=== PATIENT | female | born 1965 | race Caucasian/White ===

== ENCOUNTER 2022-02-20 06:49 | Day surgery (SDC) | payer OTHER ==
[2022-02-20] MEDS ORDERED: NA CHLORIDE 0.9% 1,000 ML ONE (07:16)
[2022-02-20] MEDS ORDERED: propofoL 200 MG/20 ML VIAL IV ONE ×2 (08:35)
[2022-02-20] MEDS ORDERED: LIDOCAINE 1% MPF 5 ML VIAL ONE (08:35)
--- NOTE | 2022-02-20 09:11 | ENDO RPT ---
[address], [address] COLONOSCOPY PROCEDURE REPORT EXAM DATE: 02/20/2022 PATIENT NAME: Aylin Cespedes MR #: [id number] BIRTHDATE: 1965 ATTENDING: Mark Gomez DR STATUS: outpatient ACCOUNTING SYSTEM EXPERT: Breanna White RN and Steven Stone [facility] INDICATIONS: The patient is a 57 yr old Female here for a colonoscopy due to colon cancer screening PROCEDURE PERFORMED: Screening Colonoscopy, Colonoscopy with biopsy, and Colonoscopy with biopsy - cold polypectomy MEDICATIONS: Per Anesthesia. ESTIMATED BLOOD LOSS: None CONSENT: The patient understands the risks and benefits of the procedure and understands that these risks include, but are not limited to: sedation, allergic reaction, infection, perforation and/or bleeding. Alternative means of evaluation and treatment include, among others: physical exam, x-rays, and/or surgical intervention. The patient elects to proceed with this endoscopic procedure. DESCRIPTION OF PROCEDURE: During intra-op preparation period all mechanical medical equipment was checked for proper function. Hand hygiene and appropriate measures for infection prevention was taken. Procedure, possible complications, alternatives including, but not limited to possibility of bleeding, perforation, tear, infection, sepsis, need for surgery, need for blood transfusion, were explained to the patient. After the risks, benefits and alternatives of the procedure were thoroughly explained, Informed consent was verified, confirmed and timeout was successfully executed by the treatment team. The patient was placed in the left lateral position. A digital rectal exam was performed and revealed internal hemorrhoids, A digital rectal exam was performed and revealed external hemorrhoids, and A digital rectal exam was performed and revealed several skin tags. After appropriate level of anesthesia, the scope was passed. The EC-[id number] ([id number]) endoscope was introduced through the anus and advanced to the ileum. The quality of the prep was fair. The instrument was then slowly withdrawn as the colon was fully examined. Scope withdrawal time was 12 minutes. COLON FINDINGS: Moderate sized internal and external hemorrhoids were found. A smooth sessile polyp ranging between 3-5mm in size was found at the cecum. A polypectomy was performed with cold forceps. The resection was complete, the polyp tissue was completely retrieved and sent to histology. The lumen appeared normal in the terminal ileum, a cold forcept biopsy was peformed of the terminal ileum. Retroflexed views revealed no abnormalities. The scope was then completely withdrawn from the patient and the procedure terminated. ADVERSE EVENTS: There were no complications. IMPRESSIONS: 1. Moderate sized internal and external hemorrhoids 2. Sessile polyp ranging between 3-5mm in size was found at the cecum; polypectomy was performed with cold forceps 3. The lumen appeared normal in the terminal ileum RECOMMENDATIONS: 1. fiber rich diet 2. await biopsy results 3. avoid NSAIDS for 2 weeks 4. follow-up: office 2 week(s) 5. Monitor for any evidence of rectal bleeding. 6. hemorrhoidal hygiene 7. yearly hemoquant 8. yearly hemoccult starting in 4 years 9. increase dietary water 10. avoid NSAIDs for 2 weeks RECALL: for Colonoscopy, pending biopsy results. Mark Gomez DR eSigned: Mark Gomez DR 02/20/2022 9:10 AM cc: CPT CODES: ICD9 CODES: PATIENT NAME: Aylin Cespedes MR#: [id number]
[2022-02-20 10:30] VITALS: BP 101/71; TEMP 96.7; O2SAT 98
== END 2022-02-20 09:33 | disposition home or self-care (01) ==
LOC: OR 06:49
PROVIDERS: ATTEND Surgery
PROC: 0DBH8ZX Excision of Cecum, Via Natural or Artificial Opening Endoscopic, Diagnostic (ICD-10-PCS; 2022-02-20)
PROC: 0DBB8ZX Excision of Ileum, Via Natural or Artificial Opening Endoscopic, Diagnostic (ICD-10-PCS; principal; 2022-02-20 08:30)
DX: D12.0 Benign neoplasm of cecum (principal); R14.0 Abdominal distension (gaseous); Z20.822 Contact with and (suspected) exposure to COVID-19; K64.4 Residual hemorrhoidal skin tags; K64.8 Other hemorrhoids
CPT/HCPCS: 82947; 88305; 45380; U0003; J2704 ×2; J7030

== ENCOUNTER 2022-05-22 09:55 | Emergency (ER) | payer OTHER ==
--- OUTSIDE RECORDS SUMMARY | 2022-05-22 10:04 | XMS REPORT | Continuity of Care Document ---
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 Wheezing or Shortness of Breath. aspirin 81 2017- Yes 81mg Take 1 Unive rs mg chewable 8-31 tablet by ity of tablet 00:00: mouth [place] 00 daily. Medical Branch blood sugar 2017- Yes Check bs Un [place] diagnostic 4-23 2x's daily ity of strip 00:00: as per [place] 00 code e11.9 Medical Branch Blood-Gluco Yes Check bs Un [place] se Meter 4-23 one daily ity of (ACCU-CHEK 00:00: per code [place] as MAGY PLUS 00 e11.9 Medical METER) [facility] lancets 33 Yes Test bs Univ ers gauge Misc 4-23 one daily ity of 00:00: per code [place] 00 e11.9 Medical Branch Immunizations Ordered Filled Immunization Date Status Comments Sourc e Immunization Name Name SARS-COV-2 COVID-19 2021-03-12 Completed Unive rsity of MODERNA VACCINE 00:00:00 [facility] Branch SARS-COV-2 COVID-19 2021-03-12 Completed Unive rsity of UNSPECIFIED VACCINE 00:00:00 [facility] SARS-COV-2 COVID-19 2021-02-12 Completed Unive rsity of MODERNA VACCINE 00:00:00 [facility] Branch SARS-COV-2 COVID-19 2021-02-12 Completed Unive rsity of UNSPECIFIED VACCINE 00:00:00 [facility] Pneumococcal 2019-07-15 Completed University o f Polysaccharide, 00:00:00 [facility] PPSV23 (PNEUMOVAX) Branch Influenza High Dose 2019-07-09 Completed Unive rsity of 00:00:00 [facility] Influenza Virus 2017-10-11 Completed Universit y of Vaccine Quad IM 3+ 00:00:00 [facility] Branch Pneumococcal 13 2016-07-17 Completed Universit y of Conjugate, PCV13 00:00:00 [facility] dical (Prevnar 13) [place] Influenza Virus 2016-07-17 Completed Universit y of Vaccine Quad IM 3+ 00:00:00 [facility] Influenza Virus 2015-08-09 Completed Universit y of Vaccine Quad IM 3+ 00:00:00 [facility] Vital Signs Vital Name Observation Time Observation Value Comments Source Systolic blood 2022-05-17 14:10:00 122 mm[Hg] Univer sity of pressure [facility] Diastolic blood 2022-05-17 14:10:00 83 mm[Hg] Unive rsity of [facility] Heart rate 2022-05-17 14:10:00 94 /min [facility] Body temperature 2022-05-17 14:10:00 36.61 Zaida [facility] Res[facility] rate 2022-05-17 14:10:00 18 /min [facility] Body height 2022-05-17 14:10:00 167.6 cm [facility] Body weight 2022-05-17 14:10:00 78.926 kg [facility] ty [facility] BMI 2022-05-17 14:10:00 28.08 kg/m2 [facility] Oxygen saturation in 2022-05-17 14:10:00 96 /min [facility] Arterial blood by [facility] Pulse oximetry Branch Systolic blood 2021-12-23 18:33:00 138 mm[Hg] [facility] pressure Diastolic blood 2021-12-23 18:33:00 78 mm[Hg] [facility] He alth pressure Heart rate 2021-12-23 18:33:00 89 /min [facility] Body temperature 2021-12-23 18:33:00 36.22 Zaida [facility] Body height 2021-12-23 18:33:00 167.6 cm [facility] Body weight 2021-12-23 18:33:00 77.565 kg [facility] BMI 2021-12-23 18:33:00 27.60 kg/m2 [facility] Systolic blood 2021-09-20 14:57:00 121 mm[Hg] [facility] pressure Diastolic blood 2021-09-20 14:57:00 83 mm[Hg] [facility] He alth pressure Heart rate 2021-09-20 14:57:00 88 /min [facility] Body temperature 2021-09-20 14:57:00 36.28 Zaida [facility] Body height 2021-09-20 14:57:00 167.6 cm [facility] Body weight 2021-09-20 14:57:00 75.116 kg [facility] BMI 2021-09-20 14:57:00 26.73 kg/m2 [facility] Systolic blood 2021-08-17 19:42:00 130 mm[Hg] [facility] pressure Diastolic blood 2021-08-17 19:42:00 86 mm[Hg] [facility] He [facility]th pressure Heart rate 2021-08-17 19:42:00 108 /min [facility] Body temperature 2021-08-17 19:42:00 36.11 Zaida [facility] Body height 2021-08-17 19:42:00 166.4 cm [facility] Body weight 2021-08-17 19:42:00 75.779 kg [facility] BMI 2021-08-17 19:42:00 27.38 kg/m2 [facility] Respitory Rate 2021-10-25 16:18:00 [facility] [place] Systolic (mm Hg) 2021-10-25 16:18:00 Barry rial [place] Diastolic (mm Hg) 2021-10-25 16:18:00 Mem o[facility] [place] Systolic (mm Hg) 2021-10-25 16:00:00 Barry rial [place] Diastolic (mm Hg) 2021-10-25 16:00:00 Mem [facility] [place] Respitory Rate 2021-10-25 16:00:00 [facility] [place] Respitory Rate 2021-10-25 15:45:00 [facility] [place] Systolic (mm Hg) 2021-10-25 15:45:00 Barry rial [place] Diastolic (mm Hg) 2021-10-25 15:45:00 Mem [facility]rial [place] Height 2021-10-25 12:00:00 167.64 cm [facility] [place] Weight 2021-10-25 12:00:00 [facility] [place] BMI Calculated 2021-10-25 12:00:00 [facility] [place] Heart Rate 2021-10-25 12:00:00 [facility] [place] Height 2021-10-20 17:54:00 167.64 cm [facility] [place] Weight 2021-10-20 17:54:00 [facility] [place] BMI Calculated 2021-10-20 17:54:00 [facility] [place] Procedures Procedure Date / Time Performing Clinician Source Performed [id number] 2020-08-03 [facility] [place] [address] [id number] 2020-02-25 00:00:00 [facility] [id number] 2020-02-25 00:00:00 [facility] [id number] 2020-02-25 00:00:00 [facility] [id number] 2020-02-19 00:00:00 [facility] [id number] 2020-02-19 00:00:00 [facility] PCI (percutaneous coronary 2020-01-30 05:00:00 [facility] [place] intervention) of circumflex branch of left coronary artery [facility] Ptosis repair [facility] [place] Tonsillectomy [facility] Encounters Start End Encounter Admission Attending Care Care Encounter Source Date/Time Date/Time Type Type Clinicians Facility Department ID 2022-02-20 Outpatient [facility] [id number] [place] 01:04:25 [place]UR[place] [id number] [facility] 2022-01-24 [facility] [id number] [place] 01:03:57 [place]URGA [id number] [facility] 2021-12-23 [facility] [id number] [place] 13:30:21 DURGA [id number] [facility] 2021-12-21 Outpatient [facility] [id number] [place] 09:10:03 [id number] [facility] 2021-11-24 [facility] [id number] [place] 19:22:14 DURGA [facility] 2022-05-17 2022-05-17 Office NINI Canela [id number] Univers 09:30:00 09:52:55 Visit Stephane VILA [id number] i ty of CARE 4.2.7.2.686 Jairo SELBY [id number] Ma dical 044 Branch 2022-02-14 2022-02-14 Outpatient KEFFER_A [facility] [id number] [place] 04:57:00 04:57:00 0517 [facility] 2022-02-07 2022-02-07 Outpatient KEFFER_A [facility] [id number] [place] 03:01:00 03:01:00 0510 [facility] 2022-02-07 2022-02-07 Outpatient Miya Bowers [facility] [id number] 00:00:00 00:00:00 Margret [id number] 2022-01-31 2022-01-31 Outpatient KEFFER_A [facility] [id number] [place] 03:29:00 03:29:00 0503 [facility] 2022-01-31 2022-01-31 Outpatient Miya Bowers [facility] [id number] 00:00:00 00:00:00 Margret [id number] 2022-01-16 2022-01-16 Outpatient KEFFER_A [facility] [id number] [place] 01:18:00 01:18:00 0418 [facility] 2022-01-16 2022-01-16 Outpatient Nino Miya [facility] [id number] 00:00:00 00:00:00 Margret [id number] 2022-01-02 2022-01-02 Outpatient KEFFER_A [facility] [id number] [place] 03:22:00 03:22:00 0404 [facility] 2022-01-02 2022-01-02 Outpatient Miya Bowers [facility] [id number] 00:00:00 00:00:00 Margret [id number] 2021-12-27 2021-12-27 Outpatient KEFFER_A [facility] [id number] [place] 04:52:00 04:52:00 0329 [facility] 2021-12-23 2021-12-23 Office Wili [facility] [id number] [place] 13:45:00 14:05:28 Visit Durga ALMANZAR 350.1.13.58 H [facility] 9.2.7.2.686 BUILDING [id number] 1 2021-12-07 2021-12-07 Outpatient KEFFER_A [facility] [id number] [place] 06:49:00 06:49:00 0309 [facility] 2021-11-21 2021-11-21 Outpatient WILI [facility] ALEXANDER [id number] [facility] 07:36:00 23:59:00 [place] 2021-11-17 2021-11-17 Outpatient KEFFER_A [facility] [id number] [place] 09:25:00 09:25:00 0217 [facility] 2021-11-15 2021-11-15 Outpatient KEFFER_A [facility] [id number] [place] 01:23:00 01:23:00 0215 [facility] 2021-11-01 2021-11-01 Outpatient JARVISFFER_A [facility] [id number] [place] 05:01:00 05:01:00 0201 [facility] 2021-10-27 2021-10-27 [facility] [id number] [place] 09:23:00 09:23:00 H da [facility] 2021-10-25 2021-10-26 Day nullFlavo [facility] [id number] Memoria 11:44:00 05:59:[address] 2021-10-25 2021-10-26 Day nullFlavo [facility] [id number] Memoria 11:42:00 05:59:00 Surgery r [place] 01 l [facility] 2021-10-25 2021-10-25 Outpatient WILI [facility] [id number] [facility] 05:44:00 23:59:00 [place] 2021-10-25 2021-10-25 Outpatient WILI [facility] ALEXANDER [id number] MH 05:42:00 23:59:00 [place] 2021-10-25 2021-10-25 Telephone Ira Meadows BUD [id number] [place] 00:00:00 00:00:00 Ira Meadows 350.1.13.58 [facility] MEDICAL 9.2.7.2.686 [facility] [id number] 1 2021-10-21 2021-10-22 Outpatient nullFlavo Urgent [id number] [facility] 16:50:00 05:59:59 [facility] 00 [facility] 2021-09-20 2021-09-20 Office WiliBUD [id number] [place] 09:15:00 10:16:37 Visit Durga ALMANZAR 350.1.13.58 H [facility] 9.2.7.2.686 [facility] [id number] 1 2021-09-12 2021-09-12 Outpatient NINO_Adelaide [facility] 2020 [place] 05:54:00 05:54:00 1213 [facility] 2021-08-17 2021-08-17 Office BUD Hinojosa [facility] [id number] [id number] [place] 13:30:00 14:29:46 Visit Harry LE 350.1.13.[address] 9.2.7.2.686 [id number] 2021-07-26 2021-07-26 Outpatient MINA [facility] [id number] [place] 01:02:00 01:02:00 1026 [facility] 2021-07-26 2021-07-26 Outpatient Miya Bowers [facility] [id number] 00:00:00 00:00:00 Margret [id number] 2021-07-25 Outpatient KEFFER_A [facility] 2020 [place] 01:19:00 01:19:00 1025 [facility] 2021-07-20 2021-07-20 Outpatient KEFFER_A [facility] 2020 [place] 01:18:00 01:18:00 1020 [facility] 2021-01-31 2021-01-31 Outpatient EL Pipopou HCAPM LABO LA0 [id number] [facility] 08:37:00 08:37:00 r, Amir 82 [facility] 2020-12-28 2020-12-27 Inpatient EL Jamal HCAPM RADI LA00 [id number] [facility] 10:30:00 10:30:00 r, Amir 27 [facility] 2020-12-14 2020-12-14 [facility] [id number] 00:00:00 00:00:00 Stephane E PRIMARY [id number] CARE 4.2.7.2.686 PAVILLION [id number] 2020-12-14 2020-12-14 [facility] [id number] 00:00:00 00:00:00 Secure Ms Stephane E PRIMARY [id number] CARE 4.2.7.2.686 PAVILLION [id number] 2020-12-13 2020-12-13 [facility] [id number] 10:26:08 11:16:28 Visit Allen Hurtado 350.1.13.10 [place] 4.2.7.2.686 Professio [id number] [facility] 2020-08-01 2020-08-16 Inpatient HCAPM NAVYA [id number] [facility] 19:05:00 04:04:10 20 [facility] 2020-08-02 2020-08-02 Outpatient Juwan HCACL LABO [id number] [facility] 07:57:00 07:57:[address] 2020-02-21 2020-04-23 Inpatient DANA Wright [facility] ICU [id number] [facility] 12:40:00 07:33:47 Maulik 48 [facility] 2020-04-20 2020-04-20 Outpatient Gasulemanpou HCAPM RADI LA0 [id number] [facility] 15:00:00 15:00:00 r, Amir 72 Dargrady n d [facility] 2020-02-19 2020-03-25 Inpatient UR Rolanda, [facility] INTE.02 [id number] [facility] 09:48:00 01:51:06 [place] 03 Sheela an d [facility] 2020-02-21 2020-02-21 Outpatient Kyle [facility] [id number] [facility] 21:56:00 21:56:00 Maulik 74 [facility] are [facility] Results Test Description Test Time Test Comments Results Result Comments Source CHEM PANEL 2021-10-25 11:50:00 Test Item Value Reference Range Interpretation Comme nts Globulin (test code = Globulin) 4.2 2.7-4.2 [facility] [id number] 11:50:00 Test Item Value Reference Range Interpretation Comments A/G Ratio (test code = A/G Ratio) 0.8 1 0.7-1.6 [facility] [id number] 11:50:00 Test Item Value Reference Range Interpretation Comments eGFR (test code = eGFR) 103 [facility] HospitalTggfjfoKOWFFKSZGV7440-87-70 11:50:00 Test Item Value Reference Range Interpretation Comments WBC (test code = WBC) 9.9 3.7-10.4 [facility] HospitalKutmbizMJIEVWETEK9348-60-95 11:50:00 Test Item Value Reference Range Interpretation Comments RBC (test code = RBC) 4.04 4.20-5.40 [facility] HospitalHtuctjaXJEEPMYSTE3280-67-04 11:50:00 Test Item Value Reference Range Interpretation Comments Hgb (test code = Hgb) 14.6 12.0-16.0 [facility] HospitalFcxlevcVMSHBDZCQS8008-61-78 11:50:00 Test Item Value Reference Range Interpretation Comments Hct (test code = Hct) 41.5 36.0-48.0 [facility] HospitalWgupgosIDOFYWGODG9534-75-24 11:50:00 Test Item Value Reference Range Interpretation Comments MCV (test code = MCV) 102.9 80.0-98.0 [place] 251542-01-25 11:50:00 Test Item Value Reference Range Interpretation Comments MCH (test code = MCH) 36.1 pg 27.0-31.0 [place] 251542-01-25 11:50:00 Test Item Value Reference Range Interpretation Comments MCHC (test code = MCHC) 35.1 32.0-36.0 [place] 251542-01-25 11:50:00 Test Item Value Reference Range Interpretation Comments RDW (test code = RDW) 14.7 11.5-14.5 [place] 251542-01-25 11:50:00 Test Item Value Reference Range Interpretation Comments Platelet (test code = Platelet) 338 133-450 [place] 251542-01-25 11:50:00 Test Item Value Reference Range Interpretation Comments MPV (test code = MPV) 7.4 7.4-10.4 [place] 251542-01-25 11:50:00 Test Item Value Reference Range Interpretation Comments Segs (test code = Segs) 47.3 45.0-75.0 [place] 251542-01-25 11:50:00 Test Item Value Reference Range Interpretation Comments Lymphocytes (test code = Lymphocytes) 38.2 20.0-40.0 [place] 251542-01-25 11:50:00 Test Item Value Reference Range Interpretation Comments Monocytes (test code = Monocytes) 10.5 2.0-12.0 [place] 251542-01-25 11:50:00 Test Item Value Reference Range Interpretation Comments Eosinophils (test code = 3.6 See_Comment [A utomated message] The Eosinophils) system which ge nerated this result tra nsmitted reference range : <=4.0. The reference r catherine was not used to int erpret this result as normal/abnormal . [place] 28825-01-25 11:50:00 Test Item Value Reference Range Interpretation Comments Basophils (test code = 0.4 See_Comment [Aut omated message] The Basophils) system which ge nerated this result tra nsmitted reference range : <=1.0. The reference r catherine was not used to int erpret this result as normal/abnormal . [place] 251542-01-25 11:50:00 Test Item Value Reference Range Interpretation Comments Neutrophils # (test code = Neutrophils 4.7 1.5-8.1 #) [place] 251542-01-25 11:50:00 Test Item Value Reference Range Interpretation Comments Lymphocytes # (test code = Lymphocytes 3.8 1.0-5.5 #) [place] 251542-01-25 11:50:00 Test Item Value Reference Range Interpretation Comments Monocytes # (test code 1.0 See_Comment [Aut omated message] The = Monocytes #) system which generated this result tra nsmitted reference range : <=0.8. The reference r catherine was not used to int erpret this result as normal/abnormal . [place] 251542-01-25 11:50:00 Test Item Value Reference Range Interpretation Comments Eosinophils # (test code 0.4 See_Comment [A utomated message] The = Eosinophils #) system whic h generated this result tra nsmitted reference range : <=0.5. The reference r catherine was not used to int erpret this result as normal/abnormal . [place] 251542-01-25 11:50:00 Test Item Value Reference Range Interpretation Comments Macrocyte (test code = 1+ *ABN*(10/25/21 Macrocyte) 5:50 AM) [place] 670152-01-25 11:50:00 Test Item Value Reference Range Interpretation Comments Glucose Lvl (test code = Glucose Lvl) 78 70-99 [place] 670152-01-25 11:50:00 Test Item Value Reference Range Interpretation Comments BUN (test code = BUN) 8 7-22 [place] 670152-01-25 11:50:00 Test Item Value Reference Range Interpretation Comments Creatinine Lvl (test code = Creatinine 0.58 0.50-1.40 Lvl) [place] 670152-01-25 11:50:00 Test Item Value Reference Range Interpretation Comments Sodium Lvl (test code = Sodium Lvl) 138 135-145 [place] 670152-01-25 11:50:00 Test Item Value Reference Range Interpretation Comments Potassium Lvl (test code = Potassium 5.3 3.5-5.1 Lvl) [place] 670152-01-25 11:50:00 Test Item Value Reference Range Interpretation Comments Chloride Lvl (test code = Chloride Lvl) 110 95-109 [place] 670152-01-25 11:50:00 Test Item Value Reference Range Interpretation Comments CO2 (test code = CO2) 24 24-32 [place] 670152-01-25 11:50:00 Test Item Value Reference Range Interpretation Comments Calcium Lvl (test code = Calcium Lvl) 9.5 8.5-10.5 [facility] [id number] 11:50:00 Test Item Value Reference Range Interpretation Comments Total Protein (test code = Total 7.7 6.4-8.4 Protein) [place] 670152-01-25 11:50:00 Test Item Value Reference Range Interpretation Comments Albumin Lvl (test code = Albumin Lvl) 3.5 3.5-5.0 [facility] [id number] 11:50:00 Test Item Value Reference Range Interpretation Comments ALT (test code = ALT) 35 See_Comment [Auto mated message] The system which ge nerated this result transmit gael reference range : <=65. The reference range was not used to interpr et this result as karen l/abnormal. [facility] [id number] 11:50:00 Test Item Value Reference Range Interpretation Comments AST (test code = AST) 37 See_Comment [Auto mated message] The system which ge nerated this result transmit gael reference range : <=37. The reference range was not used to interpr et this result as karen l/abnormal. [facility] [id number] 11:50:00 Test Item Value Reference Range Interpretation Comments Alk Phos (test code = Alk Phos) 145 39-136 [facility] [id number] 11:50:00 Test Item Value Reference Range Interpretation Comments Bili Total (test code = Bili Total) 0.6 0.2-1.3 [place] 670152-01-25 11:50:00 Test Item Value Reference Range Interpretation Comments AGAP (test code = AGAP) 9.3 10.0-20.0 [facility] [id number] 11:50:00 Test Item Value Reference Range Interpretation Comments B/C Ratio (test code = B/C Ratio) 14 1 6-25 [facility] [id number] 16:22:00 Test Item Value Reference Range Interpretation Comments Coronavirus (COVID-19) Not Detected KARAN (test code = *NA*(10/21/21 10:22 Coronavirus (COVID-19) AM) KARAN) [facility] METABOLIC [id number] 09:39:00 Test Item Value Reference Range Interpretation Comments SODIUM (test code = NA) 148 mmol/L 134-147 H POTASSIUM (test code = 4.5 mmol/L 3.4-5.0 N K) CHLORIDE (test code = 116 mmol/L 100-108 H CL) CARBON DIOXIDE (test 27 mmol/L 21-32 N code = CO2) ANION GAP (test code = 5.0 GAP calc 4.0-15.0 N GAP) GLUCOSE (test code = 99 MG/DL 70-110 N GLU) BLOOD UREA NITROGEN 7 MG/DL 7-18 N (test code = BUN) GLOMERULAR FILTRATION >=60 max estimate >60 RATE (test code = GFR) estGFR CREATININE (test code = 0.6 MG/DL 0.6-1.0 N CREAT) TOTAL PROTEIN (test code 7.3 G/DL 6.4-8.2 N = PROT) ALBUMIN (test code = 3.5 G/DL 3.4-5.0 N ALB) GLOBULIN (test code = 3.8 GM/dL GLOB) ALBUMIN/GLOBULIN RATIO 0.9 RATIO 1.2-2.2 L (test code = A/G) CALCIUM (test code = CA) 8.8 MG/DL 8.5-10.1 N BILIRUBIN TOTAL (test 0.20 MG/DL 0.2-1.2 N code = BILT) SGOT/AST (test code = 16 Unit/L 15-37 N AST) SGPT/ALT (test code = 32 Unit/L 12-78 N ALT) ALKALINE PHOSPHATASE 181 Unit/L 45-117 H TOTAL (test code = ALKP) LIPID PROFILE (CORONARY RISK)2021-01-31 09:39:00 Test Item Value Reference Range Interpretation Comments TRIGLYCERIDES (test 88 MG/DL 0-150 N code = TRIG) CHOLESTEROL (test code 129 MG/DL 133-200 L = CHOL) CHOLESTEROL/HDL RATIO 1.84 RATIO See_Comment [Auto mated message] (test code = CHOLHDL) The sy stem which generated this result transmit gael reference range : 0-. The reference r catherine was not used to interpret this result as normal/abnormal . HDL CHOLESTEROL (test 70 MG/DL 40-59 H code = HDL) NON-HDL CHOLESTEROL 59 mg/dL <130 (test code = NHDL) LIPOPROTEIN LDL (test 52 MG/DL 0-129 N code = LDL) LDL/HDL (test code = 0.74 Ratio See_Comment L [Autom ated message] LDL/HDL) The system Ph[employer] - Touch[employer] h generated this result transmit gael reference range : 1.48-3.22 Avg. The reference range was not used to interpret this result as normal/abnormal . - DUP EXTRACRANIAL [id number] 13:58:00 [facility] : 1965 Sex: F Name: ROSIO RASHEED [facility] : 1965 Age/S: 55 / F [id number] [place] Unit #: [id number] Loc: [place] [address] Phys: Sy Castano MD Acct: [id number] Dis Date: Status: REG CLI PHONE #: [phone] Exam Date: 12/28/2020 1030 FAX #: Reason: CHEST PAIN EXAMS: CPT: [id number] DUP EXTRACRANIAL JUAN C [id number] EXAMINATION: - DUP EXTRACRANIAL JUAN C. LOCATION: S17. HISTORY: Chest pain, Z86.73, I25.10. COMPARISON: CT chest 08/02/2020. FINDINGS: Hammond-scale, duplex and color Doppler images of the carotid systems are obtained bilaterally. Spectral analysis is also performed. (Validated velocity measurements with angiographic measurements ? Velocity criteria are extrapolated from diameter data as defined by the Society of Radiologists in Ultrasound Consensus Conference, Radiology 2003; 229; 340 ? 346.) There is minimal amount of atherosclerotic plaque involving bilateral common carotid arteries. There is no significant stenosis appreciated on grayscale imaging. On pulse Doppler imag ing there is no significant elevation of peak systolic velocity on either side. The peak systolic flow velocity within the right internal carotid artery is 96.8 cm/sec with ICA/CCA ratio of 1.1. The peak systolic flow velocity within the left internal carotid artery is 98.4 cm/sec with ICA/CCA ratio of 1.1. Both vertebral arteries are patent with appropriate antegrade direction of flow. IMPRESSION: Minimal bilateral atherosclerotic plaque without a hemodynamically significant stenosis on either sideby the Society of radiologists in ultrasound consensus criteria. at 1358 Reported and signed by: Adolfo Mendez M.D. CC: Sy Castano MD Technologist: Nathalia Hackett Trnnmb Date/Time: 12/28/2020 (9719) InnaANS4 PAGE 1 Signed Report Name: ROSIO RASHEED [facility] : 1965 Age/S: 55 / F [address] Unit #: [id number] Loc: [place] [address] Phys: Sy Castano MD Acct: [id number] Dis Date: Status: REG CLI PHONE #: [phone] Exam Date: 12/28/2020 1030 FAX #: Reason: CHEST PAIN EXAMS: CPT: [id number] DUP EXTRACRANIAL JUAN C 72882 (Continued) Orig Print D/T: S: 12/28/2020 (1401) Probe: PAGE 2 Signed ReportGLUCOSE BEDSIDE [id number] 12:10:00 Test Item Value Reference Range Interpretation Comments GLUCOSE BEDSIDE TESTING (test code = 90 mg/dL 70-110 N GLUBED) GLUCOSE BEDSIDE [id number] 07:48:00 Test Item Value Reference Range Interpretation Comments GLUCOSE BEDSIDE TESTING (test code = 97 mg/dL 70-110 N GLUBED) BASIC METABOLIC [id number] 06:47:00 Test Item Value Reference Range Interpretation Comments SODIUM (test code = NA) 144 mmol/L 134-147 N POTASSIUM (test code = 3.9 mmol/L 3.4-5.0 N K) CHLORIDE (test code = 115 mmol/L 100-108 H CL) CARBON DIOXIDE (test 24 mmol/L 21-32 N code = CO2) ANION GAP (test code = 5.0 GAP calc 4.0-15.0 N GAP) GLUCOSE (test code = 89 MG/DL 70-110 N GLU) BLOOD UREA NITROGEN 8 MG/DL 7-18 N (test code = BUN) GLOMERULAR FILTRATION >=60 max estimate >60 RATE (test code = GFR) estGFR CREATININE (test code = 0.6 MG/DL 0.6-1.0 N CREAT) CALCIUM (test code = CA) 8.8 MG/DL 8.5-10.1 N CBC W/AUTO [id number] 06:25:00 Test Item Value Reference Range Interpretation Comments WHITE BLOOD CELL (test code = 7.6 K/mm3 3.5-11.0 N WBC) RED BLOOD CELL (test code = 3.39 M/mm3 4.70-6.10 L RBC) HEMOGLOBIN (test code = HGB) 9.5 G/DL 10.4-14.9 L HEMATOCRIT (test code = HCT) 30.5 % 31.5-44.1 L MEAN CELL VOLUME (test code = 90.0 Fl 84.5-98.6 N MCV) MEAN CELL HGB (test code = MCH) 28.0 pg 27.0-34.2 N MEAN CELL HGB CONCETRATION 31.1 G/DL 31.5-34.0 L (test code = MCHC) RED CELL DISTRIBUTION WIDTH 16.7 SD 11.5-14.5 H (test code = RDW) PLATELET COUNT (test code = 471 K/mm3 150-450 H PLT) MEAN PLATELET VOLUME (test code 8.90 fL 7.0-10.5 N = MPV) NEUTROPHIL % (test code = NT%) 49.9 % 40-76 N IMMATURE GRANULOCYTE % (test 0.4 % 0.0-5.0 N code = IG%) LYMPHOCYTE % (test code = LY%) 33.8 % 20.5-51.1 N MONOCYTE % (test code = MO%) 10.1 % 1.7-9.3 H EOSINOPHIL % (test code = EO%) 4.8 % 0.0-6.0 N BASOPHIL % (test code = BA%) 1.0 % 0.0-2.0 N NUCLEATED RBC % (test code = 0.0 /100WBC% 0.0-1.0 N NRBC%) NEUTROPHIL # (test code = NT#) 3.8 K/mm3 1.8-7.6 N IMMATURE GRANULOCYTE # (test 0.03 x10 3/uL 0.00-0.03 N code = IG#) LYMPHOCYTE # (test code = LY#) 2.6 K/mm3 0.6-3.2 N MONOCYTE # (test code = MO#) 0.8 K/mm3 0.3-1.1 N EOSINOPHIL # (test code = EO#) 0.4 K/mm3 0.0-0.4 N BASOPHIL # (test code = BA#) 0.1 K/mm3 0.0-0.1 N NUCLEATED RBC # (test code = 0.0 K/mm3 0.0-0.1 N NRBC#) MANUAL DIFF REQUIRED (test code NO DIFF/SCN CRITERIA = MDIFF) GLUCOSE BEDSIDE [id number] 21:17:00 Test Item Value Reference Range Interpretation Comments GLUCOSE BEDSIDE TESTING (test code = 68 mg/dL 70-110 L GLUBED) GLUCOSE BEDSIDE [id number] 16:56:00 Test Item Value Reference Range Interpretation Comments GLUCOSE BEDSIDE TESTING (test code 194 mg/dL 70-110 H = GLUBED) - XR [id number] 15:45:00 [facility] 1965 Sex: F Name: ROSIO RASHEED [facility] : 1965 Age/S: 55 / F [address] Unit #: [id number] Loc: [place] [address] Phys: Reji Gilbert MD Acct: [id number] Dis Date: Status: ADM IN PHONE #: [phone] Exam Date: 08/03/2020 6362 FAX #: Reason: abnormal egd-evaluate for paraesophageal hernia EXAMS: CPT: [id number] XR ESOPHAGUS [id number] Fluoro Time: 192 sec DAP (Gy m2): Air Kerma (mGy): 50.74 EXAMINATION: - XR ESOPHAGUS. LOCATION: S17. HISTORY: Abnormal EGD, evaluate for paraesophageal hernia, chest pain, GERD. History of bariatric surgery in 1996. COMPARISON: CTA chest 08/02/20. TECHNIQUE: Single contrast upper GI was performed with barium oral contrast and overhead spot films were obtained. Fluoroscopic time: 192 seconds. 50.748 mGy. 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 Postoperative C-shaped suture material is noted in the left upper abdomen. The esophagus is unremarkable in course andcaliber. Esophageal mucosal pattern is unremarkable. Esophageal peristalsis is unremarkable. Gastroesophageal reflux was not seen during the procedure. Gastroesophageal junction is normally positioned. The stomach demonstrates postoperative changes, presumably representing vertical-banded gastroplasty with dilatation of the stoma. Course of duodenum appears unremarkable. IMPRESSION: Postoperative C-shaped suture material overlying stomach, presumably related to vertical-banded gastroplasty with dilatation of the stoma. Recommend surgery consult. at 1545 Reported and signed by: Adolfo Mendez M.D. CC: Reji Gilbert MD; Juan M Echeverria MD PAGE 1 Signed Report Name: ROSIO RASHEED [facility] : 1965 Age/S: 55 / F [address] Unit #: [id number] Loc: [place] [address] Phys: Reji Gilbert MD Acct: [id number] Dis Date: Status: ADM IN PHONE #: [phone] Exam Date: 08/03/2020 1454 FAX #: Reason: abnormal egd-evaluate for paraesophageal hernia EXAMS: CPT: [id number] XR [id number] Fluoro Time: 192 sec DAP (Gy m2): Air Kerma (mGy): 50.74 (Continued) Technologist: Francesco Penaloza RT(R)(CT) Trnscb Date/Time: 08/03/2020 (1541) t.SHIRAR.ANS4 Orig Print D/T: S: 08/03/2020 (7576) PAG E 2 Signed ReportGLUCOSE BEDSIDE [id number] 13:54:00 Test Item Value Reference Range Interpretation Comments GLUCOSE BEDSIDE TESTING (test code = 89 mg/dL 70-110 N GLUBED) GLUCOSE BEDSIDE [id number] 07:57:00 Test Item Value Reference Range Interpretation Comments GLUCOSE BEDSIDE TESTING (test code = 99 mg/dL 70-110 N GLUBED) BASIC METABOLIC [id number] 05:00:00 Test Item Value Reference Range Interpretation Comments SODIUM (test code = NA) 145 mmol/L 134-147 N POTASSIUM (test code = 4.1 mmol/L 3.4-5.0 N K) CHLORIDE (test code = 115 mmol/L 100-108 H CL) CARBON DIOXIDE (test 24 mmol/L 21-32 N code = CO2) ANION GAP (test code = 6.0 GAP calc 4.0-15.0 N GAP) GLUCOSE (test code = 91 MG/DL 70-110 N GLU) BLOOD UREA NITROGEN 10 MG/DL 7-18 N (test code = BUN) GLOMERULAR FILTRATION >=60 max estimate >60 RATE (test code = GFR) estGFR CREATININE (test code = 0.6 MG/DL 0.6-1.0 N CREAT) CALCIUM (test code = CA) 8.4 MG/DL 8.5-10.1 L CBC W/AUTO [id number] 04:51:00 Test Item Value Reference Range Interpretation Comments WHITE BLOOD CELL (test code = 7.9 K/mm3 3.5-11.0 N WBC) RED BLOOD CELL (test code = 3.15 M/mm3 4.70-6.10 L RBC) HEMOGLOBIN (test code = HGB) 8.6 G/DL 10.4-14.9 L HEMATOCRIT (test code = HCT) 27.9 % 31.5-44.1 L MEAN CELL VOLUME (test code = 88.6 Fl 84.5-98.6 N MCV) MEAN CELL HGB (test code = MCH) 27.3 pg 27.0-34.2 N MEAN CELL HGB CONCETRATION 30.8 G/DL 31.5-34.0 L (test code = MCHC) RED CELL DISTRIBUTION WIDTH 16.9 SD 11.5-14.5 H (test code = RDW) PLATELET COUNT (test code = 419 K/mm3 150-450 N PLT) MEAN PLATELET VOLUME (test code 9.20 fL 7.0-10.5 N = MPV) NEUTROPHIL % (test code = NT%) 46.8 % 40-76 IMMATURE GRANULOCYTE % (test 0.1 % 0.0-5.0 N code = IG%) LYMPHOCYTE % (test code = LY%) 40.2 % 20.5-51.1 N MONOCYTE % (test code = MO%) 7.6 % 1.7-9.3 N EOSINOPHIL % (test code = EO%) 4.3 % 0.0-6.0 N BASOPHIL % (test code = BA%) 1.0 % 0.0-2.0 N NUCLEATED RBC % (test code = 0.0 /100WBC% 0.0-1.0 N NRBC%) NEUTROPHIL # (test code = NT#) 3.7 K/mm3 1.8-7.6 N IMMATURE GRANULOCYTE # (test 0.01 x10 3/uL 0.00-0.03 N code = IG#) LYMPHOCYTE # (test code = LY#) 3.2 K/mm3 0.6-3.2 N MONOCYTE # (test code = MO#) 0.6 K/mm3 0.3-1.1 N EOSINOPHIL # (test code = EO#) 0.3 K/mm3 0.0-0.4 N BASOPHIL # (test code = BA#) 0.1 K/mm3 0.0-0.1 N NUCLEATED RBC # (test code = 0.0 K/mm3 0.0-0.1 N NRBC#) MANUAL DIFF REQUIRED (test code NO DIFF/SCN CRITERIA = MDIFF) [id number] 20:56:00 Test Item Value Reference Range Interpretation Comments TROPONIN-I (test < 0.015 NG/ML 0.000-0.045 N Negative: </= 0.045 code = TROPI) Positive: >/= 0.046 Correlation wit h serial results, other cardiac markers, and cl inical findings is nec essary to determine the c linical significance of this result. Quantit ative results using d ifferent methodologies s hould not be compared to one another as nume rical results may hina yby method. Completed by Nursing: Kyle Williamson Result: NEGPerformed By: .If Critical Value, Physician Notified:YESDate & Time Test Performed: TGLUCOSE BEDSIDE TESTING 2020-08-02 20:42:00 Test Item Value Reference Range Interpretation Comments GLUCOSE BEDSIDE TESTING (test code 113 mg/dL 70-110 H = GLUBED) GLUCOSE BEDSIDE [id number] 20:20:00 Test Item Value Reference Range Interpretation Comments GLUCOSE BEDSIDE TESTING (test code = 90 mg/dL 70-110 N GLUBED) GLUCOSE BEDSIDE [id number] 17:28:00 Test Item Value Reference Range Interpretation Comments GLUCOSE BEDSIDE TESTING (test code 107 mg/dL 70-110 N = GLUBED) - CTA CHEST FOR [id number] 16:58:00 [facility] : 1965 Sex: F Name: ROSIO RASHEED Sergio [facility] : 1965 Age/S: 55 / F [address] Unit #: [id number] Loc: [place] [address] Phys: Irasema Elias Acct: [id number] Dis Date: Status: ADM IN PHONE #: [phone] Exam Date: 08/02/20201651 FAX #: Reason: r/o PE EXAMS: CPT: [id number] CTA CHEST FOR PE Site ID: [id number] CT angiogram of the chest with pulmonary embolism protocol CLINICAL HISTORY: Pleuritic chest pain COMPARISON STUDY: Chest x-ray the prior day TECHNIQUE: CT angiogram of thechest with IV contrast performed according to department pulmonary embolus protocol. Radiologist performed post-acquisition 3D processing was done at the workstation and reviewed. CT dose lowering technique utilized, with adjustment of MA/kV according to patient size and automated exposure control. FINDINGS: There is no evidence of pulmonary embolism. The thyroid gland and thoracic inlet are normal.The heart size is normal. The thoracic aorta and great vessels are normal in caliber. Heavy three-vessel coronary atherosclerosis is present. No pleural or pericardial effusion. No axillary, mediastinal or hilar lymphadenopathy. The tracheobronchial tree is clear. No pulmonary nodules, mass or consolidation. Bone windows demonstrate no evidence of fracture or malalignment. Limited images of the upper abdomen demonstrate postoperative changes at the stomach with a small sliding-type hiatal hernia. IMPRESSION: 1. No evidence of acute pulmonary embolus or acute pulmonary infiltrate. 2. Heavy three-vessel coronary atherosclerosis. 3. Small sliding-type hiatal hernia. PAGE 1 Signed Report (CONTINUED)Name: ROSIO RASHEED [facility] : 1965 Age/S: 55 / F [address] [facility] Unit #: [id number] Loc: [place] [address] Phys: Irasema Elias Acct: [id number] Dis Date: Status: ADM IN PHONE #: [phone] Exam Date: 08/02/2020 165 FAX #: Reason: r/o PE EXAMS: CPT: [id number] CTA CHEST FOR PE (Continued) at 1658 Reported and signed by: Mark Chandra M.D. CC: Irasema STREET; Juan M Echeverria MD Technologist:Alona Deal RT(R)(CT) CTDI: DLP: Trnscb Date/Time: 08/02/2020 (1230) InnaAJP6 Orig Print D/T: S: 08/02/2020 (6733) PAGE 2 Signed ReportGLUCOSE BEDSIDE [id number] 13:45:00 Test Item Value Reference Range Interpretation Comments GLUCOSE BEDSIDE TESTING (test code = 96 mg/dL 70-110 N GLUBED) [id number] 06:11:00 Test Item Value Reference Range Interpretation Comments TROPONIN-I (test < 0.015 NG/ML 0.000-0.045 N Negative: </= 0.045 code = TROPI) Positive: >/= 0.046 Correlation wit h serial results, other cardiac markers, and cl inical findings is nec essary to determine the c linical significance of this result. Quantit ative results using d ifferent methodologies s hould not be compared to one another as nume rical results may hina yby method. Completed by Nursing: NOFE W/TOTAL IRON BINDING CAP.2020-08-02 06:00:00 Test Item Value Reference Range Interpretation Comments SERUM IRON (test code = IRON) 18 mcG/DL 50-170 L TOTAL IRON BINDING CAPACITY (test 347 mcG/DL 250-450 N code = TIBC) IRON SATURATION (test code = 5 % calc 12-57 L FESAT) BASIC METABOLIC [id number] 06:00:00 Test Item Value Reference Range Interpretation Comments SODIUM (test code = NA) 144 mmol/L 134-147 N POTASSIUM (test code = 3.7 mmol/L 3.4-5.0 N K) CHLORIDE (test code = 117 mmol/L 100-108 H CL) CARBON DIOXIDE (test 20 mmol/L 21-32 L code = CO2) ANION GAP (test code = 7.0 GAP calc 4.0-15.0 N GAP) GLUCOSE (test code = 92 MG/DL 70-110 N GLU) BLOOD UREA NITROGEN 12 MG/DL 7-18 N (test code = BUN) GLOMERULAR FILTRATION >=60 max estimate >60 RATE (test code = GFR) estGFR CREATININE (test code = 0.6 MG/DL 0.6-1.0 N CREAT) CALCIUM (test code = CA) 8.3 MG/DL 8.5-10.1 L CBC W/AUTO [id number] 05:37:00 Test Item Value Reference Range Interpretation Comments WHITE BLOOD CELL (test code = 9.9 K/mm3 3.5-11.0 N WBC) RED BLOOD CELL (test code = 2.82 M/mm3 4.70-6.10 L RBC) HEMOGLOBIN (test code = HGB) 7.9 G/DL 10.4-14.9 L HEMATOCRIT (test code = HCT) 24.6 % 31.5-44.1 L MEAN CELL VOLUME (test code = 87.2 Fl 84.5-98.6 N MCV) MEAN CELL HGB (test code = MCH) 28.0 pg 27.0-34.2 N MEAN CELL HGB CONCETRATION 32.1 G/DL 31.5-34.0 N (test code = MCHC) RED CELL DISTRIBUTION WIDTH 16.5 SD 11.5-14.5 H (test code = RDW) PLATELET COUNT (test code = 400 K/mm3 150-450 N PLT) MEAN PLATELET VOLUME (test code 9.30 fL 7.0-10.5 N = MPV) NEUTROPHIL % (test code = NT%) 64.9 % 40-76 N IMMATURE GRANULOCYTE % (test 0.2 % 0.0-5.0 N code = IG%) LYMPHOCYTE % (test code = LY%) 22.4 % 20.5-51.1 N MONOCYTE % (test code = MO%) 7.7 % 1.7-9.3 N EOSINOPHIL % (test code = EO%) 4.1 % 0.0-6.0 N BASOPHIL % (test code = BA%) 0.7 % 0.0-2.0 N NUCLEATED RBC % (test code = 0.0 /100WBC% 0.0-1.0 N NRBC%) NEUTROPHIL # (test code = NT#) 6.4 K/mm3 1.8-7.6 N IMMATURE GRANULOCYTE # (test 0.02 x10 3/uL 0.00-0.03 N code = IG#) LYMPHOCYTE # (test code = LY#) 2.2 K/mm3 0.6-3.2 N MONOCYTE # (test code = MO#) 0.8 K/mm3 0.3-1.1 N EOSINOPHIL # (test code = EO#) 0.4 K/mm3 0.0-0.4 N BASOPHIL # (test code = BA#) 0.1 K/mm3 0.0-0.1 N NUCLEATED RBC # (test code = 0.0 K/mm3 0.0-0.1 N NRBC#) MANUAL DIFF REQUIRED (test code NO DIFF/SCN CRITERIA = MDIFF) [id number] 00:52:00 Test Item Value Reference Range Interpretation Comments D-DIMER (test code = DDIMER) 509 ng/mLFEU 215-500 HH NT PRO-BRAIN NATRIURETIC [id number] 00:45:00 Test Item Value Reference Range Interpretation Comments NT PRO-BRAIN NATRIURETIC PEPTI 430 PG/ML 0-100 H (test code = PROBNP) Completed by Nursing: [id number] 00:45:00 Test Item Value Reference Range Interpretation Comments TROPONIN-I (test < 0.015 NG/ML 0.000-0.045 N Negative: </= 0.045 code = TROPI) Positive: >/= 0.046 Correlation wit h serial results, other cardiac markers, and cl inical findings is nec essary to determine the c linical significance of this result. Quantit ative results using d ifferent methodologies s hould not be compared to one another as nume rical results may hina yby method. Completed by Nursing: NOCOVID 19 INHOUSE [id number] 00:42:00 Test Item Value Reference Range Interpretation Comments COVID 19 INHOUSE AG NEGATIVE Negative Per manu facturer, (test code = negative result s should [id number]) be treated aspr esumptive and, if inconsi stent with clinical signs andsymptoms or necessary for patient man agement, should betested with an alternative mol ecular assay. Negative resultsdo not preclude SA RS-CoV-2 infection and s hould not be usedas the s ole basis for patient man agement decisions. Nega tive results should be considered in t he context of apatient's r ecent exposures, hist ory, presence of cli nicalsigns and symptoms co nsistent with COVID-19. - XR CHEST 1 [id number] 20:03:00 [facility] 1965 Sex: F Name: ROSIO RASHEED [facility] : 1965 Age/S: 55 / F [address] Unit #: [id number] Loc: [place] [address] Phys: Boni Helton MD Acct: [id number] Dis Date: Status: REGER PHONE #: [phone] Exam Date: 08/01/20201956 FAX #: Reason: dyspnea EXAMS: CPT: [id number] XRCHEST 1 V [id number] Fluoro Time: DAP (Gy m2): Air Kerma (mGy): EXAM: - XR CHEST 1 V HISTORY: Dyspnea. COM PARISON: February 21, 2020. FINDINGS: Single AP view of the chest is provided. Heart size and vascularity are within normal limits. There is no evidence of a focal consolidation. There is no pleural effusion or pneumothorax. There is no definite acute osseous abnormality. IMPRESSION: No radiographic evidence of acute cardiopulmonary process. at 2003 Reported and signed by: Albert Hartman M.D. CC: Boni Helton MD PAGE 1 Signed Report Name: ROSIO RASHEED [facility] : 1965 Age/S: 55 [address] [place] [address]: [id number] Loc: [place] [address] Phys: Boni Helton MD Acct: [id number] Dis Date: Status: REG ER PHONE #: [phone] Exam Date: 08/01/20201956 FAX #: Reason: dyspnea EXAMS: CPT: [id number] XR CHEST 1 V 48495 Fluoro Time: DAP (Gy m2): Air Kerma (mGy): (Continued) Technologist: Jackeline Aguila, RT(R)(CT) Trnscb Date/Time: 08/01/2020 (2002) InnaMKM4 Orig Print D/T: S: 08/01/2020 (2005) PAGE 2 Signed ReportCBC W/AUTO [id number] 19:57:00 Test Item Value Reference Range Interpretation Comments WHITE BLOOD CELL (test code = 11.2 K/mm3 3.5-11.0 H WBC) RED BLOOD CELL (test code = 3.33 M/mm3 4.70-6.10 L RBC) HEMOGLOBIN (test code = HGB) 9.1 G/DL 10.4-14.9 L HEMATOCRIT (test code = HCT) 30.2 % 31.5-44.1 L MEAN CELL VOLUME (test code = 90.7 Fl 84.5-98.6 N MCV) MEAN CELL HGB (test code = MCH) 27.3 pg 27.0-34.2 N MEAN CELL HGB CONCETRATION 30.1 G/DL 31.5-34.0 L (test code = MCHC) RED CELL DISTRIBUTION WIDTH 16.8 SD 11.5-14.5 H (test code = RDW) PLATELET COUNT (test code = 447 K/mm3 150-450 N PLT) MEAN PLATELET VOLUME (test code 9.10 fL 7.0-10.5 N = MPV) NEUTROPHIL % (test code = NT%) 68.5 % 40-76 N IMMATURE GRANULOCYTE % (test 0.4 % 0.0-5.0 N code = IG%) LYMPHOCYTE % (test code = LY%) 18.6 % 20.5-51.1 L MONOCYTE % (test code = MO%) 8.3 % 1.7-9.3 N EOSINOPHIL % (test code = EO%) 3.4 % 0.0-6.0 N BASOPHIL % (test code = BA%) 0.8 % 0.0-2.0 N NUCLEATED RBC % (test code = 0.0 /100WBC% 0.0-1.0 N NRBC%) NEUTROPHIL # (test code = NT#) 7.7 K/mm3 1.8-7.6 H IMMATURE GRANULOCYTE # (test 0.04 x10 3/uL 0.00-0.03 H code = IG#) LYMPHOCYTE # (test code = LY#) 2.1 K/mm3 0.6-3.2 N MONOCYTE # (test code = MO#) 0.9 K/mm3 0.3-1.1 N EOSINOPHIL # (test code = EO#) 0.4 K/mm3 0.0-0.4 N BASOPHIL # (test code = BA#) 0.1 K/mm3 0.0-0.1 N NUCLEATED RBC # (test code = 0.0 K/mm3 0.0-0.1 N NRBC#) MANUAL DIFF REQUIRED (test code NO DIFF/SCN CRITERIA = MDIFF) COMPREHENSIVE METABOLIC [id number] 19:57:00 Test Item Value Reference Range Interpretation Comments SODIUM (test code = NA) 144 mmol/L 134-147 N POTASSIUM (test code = 3.9 mmol/L 3.4-5.0 N K) CHLORIDE (test code = 117 mmol/L 100-108 H CL) CARBON DIOXIDE (test 19 mmol/L 21-32 L code = CO2) ANION GAP (test code = 8.0 GAP calc 4.0-15.0 N GAP) GLUCOSE (test code = 65 MG/DL 70-110 L GLU) BLOOD UREA NITROGEN 14 MG/DL 7-18 N (test code = BUN) GLOMERULAR FILTRATION >=60 max estimate >60 RATE (test code = GFR) estGFR CREATININE (test code = 0.7 MG/DL 0.6-1.0 N CREAT) TOTAL PROTEIN (test code 6.6 G/DL 6.4-8.2 N = PROT) ALBUMIN (test code = 3.0 G/DL 3.4-5.0 L ALB) GLOBULIN (test code = 3.6 GM/dL GLOB) ALBUMIN/GLOBULIN RATIO 0.8 RATIO 1.2-2.2 L (test code = A/G) CALCIUM (test code = CA) 8.2 MG/DL 8.5-10.1 L BILIRUBIN TOTAL (test 0.10 MG/DL 0.2-1.2 L code = BILT) SGOT/AST (test code = 20 Unit/L 15-37 N AST) SGPT/ALT (test code = 27 Unit/L 12-78 N ALT) ALKALINE PHOSPHATASE 147 Unit/L 45-117 H TOTAL (test code = ALKP) Completed by Nursing: [id number] 19:57:00 Test Item Value Reference Range Interpretation Comments TROPONIN-I (test < 0.015 NG/ML 0.000-0.045 N Negative: </= 0.045 code = TROPI) Positive: >/= 0.046 Correlation wit h serial results, other cardiac markers, and cl inical findings is nec essary to determine the c linical significance of this result. Quantit ative results using d ifferent methodologies s hould not be compared to one another as nume rical results may hina yby method. Completed by Nursing: NO- DUP VEIN UNI [id number] 15:19:00 Name: ROSIO RASHEED [facility] : 1965 Age/S: 55 / F [address] [address] Unit #:[id number] Loc: [place] [address] Phys: Sy Castano MD Acct: [id number] Dis Date: Status:REG CLI PHONE #: [phone] Exam Date: 04/20/2020 7082 FAX #: Reason: DVT EXAMS: CPT: [id number] [address] EXAMINATION: - DUP VEIN UNI RT. LOCATION: S17. HISTORY: DVT, leg swelling, recentfall/bruising, currently on blood thinners. COMPARISON: None. FINDINGS: Sonographic evaluation of right lower extremity was performed from the common femoral veins to the popliteal trifurcations utilizing grayscale, pulse Doppler, and color flow imaging. The veins are normally compressible. There is normal respiratory phasicity and augmentation demonstrated. Color flow is demonstrated. The visualized proximal calf veins demonstrate flow on color imaging. IMPRESSION: No evidence of deep venous thrombus in the visualized portions of the right lower extremity. at 1519 Reported and signed by: Adolfo Mendez M.D. CC: Sy Castano MD Technologist: [employer] [facility] Date/Time: 04/20/2020 (1519) [email or web address] PAGE 1 Signed Report Name: ROSIO RASHEED : 1965 Age/S: 55 / F [address] Unit #: [id number] Loc: [place] [address] Phys: Sy Castano MD Acct: [id number] Dis Date: Status: REG CLI PHONE #: [phone] Exam Date: 04/20/2020 1459 FAX #: Reason: DVT EXAMS: CPT:[id number] [place] [address] (Continued) Orig Print D/T: S: 04/20/2020 (152) Probe: PAGE 2 Signed Report LIPID PROFILE (CORONARY RISK)2020-02-26 04:16:00 Test Item Value Reference Range Interpretation Comments TRIGLYCERIDES (test 71 mg/dL 35-160 N code = TRIG) CHOLESTEROL (test code 112 mg/dL 0-200 N = CHOL) HDL CHOLESTEROL (test 40 mg/dL 45-65 L code = HDL) LIPOPROTEIN LDL (test 58 MG/DL 0-99 N INTERP RETATIVE code = LDLC) DATA:LDL Choles terol: Reference RangesOptimal: <100 mg/dLNear Optim al: 100 -129 mg/dLBorde rline High: 130 - 159 mg/dLHigh: 160 - 189 mg/dLVery High: = or > 190 mg/dL CORONARY RISK FACTOR 2.80 CHOL/H DL RISK MALE: (test code = RISK) 1/2 AVG 3 .43 FEMALE: 1/2 AVG 3.27 AV G 4.97 AVG 4.44 2X AVG 9.55 2X AVG 7.05 3X AVG 23.39 3X AVG 11.04~~~~~~~~~~ ~~~~~~~ ~~~~~~~~~~~~~~~ ~~~~~~~ ~~~~~~~~~~~~~~~ ~~~~~~N [facility] Cholest deana Education (NCEP ) Guidelines:~~~~ ~~~~~~~ ~~~~~~~~~~~~~~~ ~~~~~~~ ~~~~~~~~~~~~~~~ ~~~~~~~ ~~~~~ HDL Cholesterol<4 0mg/dL: HDL Cholesterol (Major risk factor for CHD)>60mg/dL: H DL Cholesterol (Ne gative risk factor for CHD)40-59mg/dL: Borderline Risk LDL Cholesterol<1 00mg/dL : Desirable LDL -C [id number] 0-159mg /dL: Borderline High Risk LDL-C [id number] 0-189mg /dL: High risk LDL-C concentration H DL-LDL Cholesterol is affected by a n umber of factors such as smoking, age an d sex.~~~~~~~~~~~ ~~~~~~~ ~~~~~~~~~~~~~~~ ~~~~~~~ ~~~~~~~~~~~~~~~ ~~~~~ BASIC METABOLIC [id number] 04:10:00 Test Item Value Reference Range Interpretation Comments SODIUM (test code 139 MMOL/L 136-143 N = NA) POTASSIUM (test 4.2 MMOL/L 3.5-5.1 N code = K) CHLORIDE (test 109 MMOL/L 98-107 H code = CL) CARBON DIOXIDE 19 mmol/L 24-31 L (test code = CO2) GLUCOSE (test code 96 mg/dL 70-104 N = GLU) BLOOD UREA 11.1 MG/DL 7.0-21.0 N NITROGEN (test code = BUN) GLOMERULAR >=60 max >60 The estimated FILTRATION RATE estimate glomerular (test code = GFR) filtration rate is computed usingpatient ra ce, age (>18), sex, and serum creatinin e. If anyof the neede d data elements a re missing the Laboratory katey ot compute an estimation of t he glomerular filtration rate . CREATININE (test 0.6 mg/dL 0.8-1.5 L code = CREAT) CALCIUM (test code 8.5 mg/dL 8.8-10.2 L = CA) CBC W/AUTO [id number] 03:55:00 Test Item Value Reference Range Interpretation Comments WHITE BLOOD CELL (test code = 9.8 x10 3/uL 4.8-10.8 N WBC) RED BLOOD CELL (test code = 2.92 x10 6/uL 4.20-5.40 L RBC) HEMOGLOBIN (test code = HGB) 10.0 g/dL 14.5-20 L HEMATOCRIT (test code = HCT) 30.3 % 37.0-47.0 L MEAN CELL VOLUME (test code = 103.8 fL 81.0-99.0 H MCV) MEAN CELL HGB (test code = MCH) 34.2 pg 27-31 H MEAN CELL HGB CONCENTRATION 33.0 G/DL 33-36.5 N (test code = MCHC) RED CELL DISTRIBUTION WIDTH 13.5 % 12.9-16.9 N (test code = RDW) PLATELET COUNT (test code = 333 150-440 N PLT) MEAN PLATELET VOLUME (test code 9.4 fL 8.9-12.4 N = MPV) NEUTROPHIL % (test code = NT%) 61.9 % 42.2-75.2 N LYMPHOCYTE % (test code = LY%) 19.5 % 20.5-51.1 L MONOCYTE % (test code = MO%) 11.8 % 1.7-9.3 H EOSINOPHIL % (test code = EO%) 5.7 % 0.0-7.0 N BASOPHIL % (test code = BA%) 0.6 % 0-2.5 N NEUTROPHIL # (test code = NT#) 6.03 x10 3/uL 1.80-7.70 N LYMPHOCYTE # (test code = LY#) 1.90 x10 3/uL 1.00-4.80 N MONOCYTE # (test code = MO#) 1.15 x10 3/uL 0.00-0.80 H EOSINOPHIL # (test code = EO#) 0.56 x10 3/uL 0.00-0.45 H BASOPHIL # (test code = BA#) 0.06 x10 3/uL 0.0-0.20 N THROMBOPLASTIN TIME [id number] 23:03:00 Test Item Value Reference Range Interpretation Comments THROMBOPLASTIN TIME 31.9 SECONDS 26.0-35.9 INTERPRE TATIVE PARTIAL (test code = DATA: erapeutic PTT) range: Unfractionated heparin:47 - 71 seconds Argatroban:1.5 to 3 times the basel ine PTT THROMBOPLASTIN TIME [id number] 20:38:00 Test Item Value Reference Range Interpretation Comments THROMBOPLASTIN TIME 105.9 SECONDS 26.0-35.9 HH Critic al Value PARTIAL (test code = reporte d toFirst PTT) Name:ALEJANDRA Last Name:YURI STRONG READ BACK AND VERIFIEDby P.LAB.[facility] [place] @ 2037.INTERPRETA TIVE DATA:Therapeuti c range: Unfractionated heparin:47 - 71 seconds Argatroban:1.5 to 3 times the basel ine PTT RAN TEST X 4 AND TEST FAILED.RAN TESTS ON BOTH INSTRUMENTCOAGULATION TIME [id number] 16:45:00 Test Item Value Reference Range Interpretation Comments COAGULATION TIME ACTIVATED (test 345 SECONDS 74-137 H code = ACT) COAGULATION TIME [id number] 16:13:00 Test Item Value Reference Range Interpretation Comments COAGULATION TIME ACTIVATED (test 235 SECONDS 74-137 H code = ACT) THROMBOPLASTIN TIME [id number] 04:54:00 Test Item Value Reference Range Interpretation Comments THROMBOPLASTIN TIME 56.2 SECONDS 26.0-35.9 H INTERPRE TATIVE PARTIAL (test code = DATA: erapeutic PTT) range: Unfractionated heparin:47 - 71 seconds Argatroban:1.5 to 3 times the basel ine PTT CBC W/AUTO [id number] 04:49:00 Test Item Value Reference Range Interpretation Comments WHITE BLOOD CELL (test code = 10.6 x10 3/uL 4.8-10.8 N WBC) RED BLOOD CELL (test code = 2.92 x10 6/uL 4.20-5.40 L RBC) HEMOGLOBIN (test code = HGB) 10.0 g/dL 14.5-20 L HEMATOCRIT (test code = HCT) 30.5 % 37.0-47.0 L MEAN CELL VOLUME (test code = 104.5 fL 81.0-99.0 H MCV) MEAN CELL HGB (test code = MCH) 34.2 pg 27-31 H MEAN CELL HGB CONCENTRATION 32.8 G/DL 33-36.5 L (test code = MCHC) RED CELL DISTRIBUTION WIDTH 13.4 % 12.9-16.9 N (test code = RDW) PLATELET COUNT (test code = 315 150-440 N PLT) MEAN PLATELET VOLUME (test code 9.6 fL 8.9-12.4 N = MPV) NEUTROPHIL % (test code = NT%) 63.8 % 42.2-75.2 N LYMPHOCYTE % (test code = LY%) 20.9 % 20.5-51.1 N MONOCYTE % (test code = MO%) 8.7 % 1.7-9.3 N EOSINOPHIL % (test code = EO%) 5.2 % 0.0-7.0 N BASOPHIL % (test code = BA%) 0.6 % 0-2.5 N NEUTROPHIL # (test code = NT#) 6.74 x10 3/uL 1.80-7.70 N LYMPHOCYTE # (test code = LY#) 2.21 x10 3/uL 1.00-4.80 N MONOCYTE # (test code = MO#) 0.92 x10 3/uL 0.00-0.80 H EOSINOPHIL # (test code = EO#) 0.55 x10 3/uL 0.00-0.45 H BASOPHIL # (test code = BA#) 0.06 x10 3/uL 0.0-0.20 N BASIC METABOLIC [id number] 04:44:00 Test Item Value Reference Range Interpretation Comments SODIUM (test code 141 MMOL/L 136-143 N = NA) POTASSIUM (test 4.1 MMOL/L 3.5-5.1 N code = K) CHLORIDE (test 110 MMOL/L 98-107 H code = CL) CARBON DIOXIDE 20 mmol/L 24-31 L (test code = CO2) GLUCOSE (test code 97 mg/dL 70-104 N = GLU) BLOOD UREA 11.9 MG/DL 7.0-21.0 N NITROGEN (test code = BUN) GLOMERULAR >=60 max >60 The estimated FILTRATION RATE estimate glomerular (test code = GFR) filtration rate is computed usingpatient ra ce, age (>18), sex, and serum creatinin e. If anyof the neede d data elements a re missing the Laboratory katey ot compute an estimation of t he glomerular filtration rate . CREATININE (test 0.5 mg/dL 0.8-1.5 L code = CREAT) CALCIUM (test code 8.9 mg/dL 8.8-10.2 N = CA) [id number] 04:44:00 Test Item Value Reference Range Interpretation Comments PHOSPHOROUS (test code = PHOS) 4.9 mg/dL 2.7-4.5 H [id number] 04:44:00 Test Item Value Reference Range Interpretation Comments MAGNESIUM (test code = MAG) 1.7 mg/dL 1.4-2.6 N COMPREHENSIVE METABOLIC [id number] 02:06:00 Test Item Value Reference Range Interpretation Comments SODIUM (test code = 141 MMOL/L 136-143 N NA) POTASSIUM (test 3.7 MMOL/L 3.5-5.1 N code = K) CHLORIDE (test code 109 MMOL/L 98-107 H = CL) CARBON DIOXIDE 19 mmol/L 24-31 L (test code = CO2) GLUCOSE (test code 112 mg/dL 70-104 H = GLU) BLOOD UREA NITROGEN 11.3 MG/DL 7.0-21.0 N (test code = BUN) GLOMERULAR >=60 max >60 The estimated FILTRATION RATE estimate glomerular (test code = GFR) filtration rate is computed usingpatient ra ce, age (>18), sex, and serum creatinin e. If anyof the ne eded data elements a re missing the Laboratory katey ot compute an estimation of t he glomerular filtration rate . CREATININE (test 0.4 mg/dL 0.8-1.5 L code = CREAT) TOTAL PROTEIN (test 5.2 g/dL 6.3-8.3 L code = PROT) ALBUMIN (test code 3.1 G/DL 3.5-5.0 L = ALB) CALCIUM (test code 7.8 mg/dL 8.8-10.2 L = CA) BILIRUBIN TOTAL 0.2 mg/dL 0.2-1.0 N (test code = BILT) SGOT/AST (test code 44 IU/L 10-34 H = AST) SGPT/ALT (test code 29 U/L 10-36 N = ALT) ALKALINE 114 U/L 32-104 H PHOSPHATASE (test code = ALKP) [id number] 02:06:00 Test Item Value Reference Range Interpretation Comments MAGNESIUM (test code = MAG) 1.7 mg/dL 1.4-2.6 N LIPOPROTEIN [id number] 02:06:00 Test Item Value Reference Range Interpretation Comments LIPOPROTEIN LDL (test 63 mg/dL 0-99 Perfor med At: HD code = LDL) [facility], [place] [id number] Doug Hill MD Ph:[phone] TERPRE TATIVE DATA:LDL Cholesterol: Reference Range s: AGE: MALE: FEMALE:0-19Y 0- 109 mg/dL 0-109 mg/ dL>19Y 0-99 mg/dL 0-9 9 mg/dL THROMBOPLASTIN TIME [id number] 04:58:00 Test Item Value Reference Range Interpretation Comments THROMBOPLASTIN TIME 51.9 SECONDS 26.0-35.9 H INTERPRE TATIVE PARTIAL (test code = DATA: erapeutic PTT) range: Unfractionated heparin:47 - 71 seconds Argatroban:1.5 to 3 times the basel ine PTT BASIC METABOLIC [id number] 04:44:00 Test Item Value Reference Range Interpretation Comments SODIUM (test code 138 MMOL/L 136-143 N = NA) POTASSIUM (test 4.4 MMOL/L 3.5-5.1 N code = K) CHLORIDE (test 106 MMOL/L 98-107 N code = CL) CARBON DIOXIDE 21 mmol/L 24-31 L (test code = CO2) GLUCOSE (test code 97 mg/dL 70-104 N = GLU) BLOOD UREA 10.6 MG/DL 7.0-21.0 N NITROGEN (test code = BUN) GLOMERULAR >=60 max >60 The estimated FILTRATION RATE estimate glomerular (test code = GFR) filtration rate is computed usingpatient ra ce, age (>18), sex, and serum creatinin e. If anyof the neede d data elements a re missing the Laboratory katey ot compute an estimation of t he glomerular filtration rate . CREATININE (test 0.5 mg/dL 0.8-1.5 L code = CREAT) CALCIUM (test code 8.7 mg/dL 8.8-10.2 L = CA) [id number] 04:44:00 Test Item Value Reference Range Interpretation Comments MAGNESIUM (test code = MAG) 1.8 mg/dL 1.4-2.6 N CBC W/AUTO [id number] 04:30:00 Test Item Value Reference Range Interpretation Comments WHITE BLOOD CELL (test code = 11.6 x10 3/uL 4.8-10.8 H WBC) RED BLOOD CELL (test code = 3.02 x10 6/uL 4.20-5.40 L RBC) HEMOGLOBIN (test code = HGB) 10.5 g/dL 14.5-20 L HEMATOCRIT (test code = HCT) 31.3 % 37.0-47.0 L MEAN CELL VOLUME (test code = 103.6 fL 81.0-99.0 H MCV) MEAN CELL HGB (test code = MCH) 34.8 pg 27-31 H MEAN CELL HGB CONCENTRATION 33.5 G/DL 33-36.5 N (test code = MCHC) RED CELL DISTRIBUTION WIDTH 13.5 % 12.9-16.9 N (test code = RDW) PLATELET COUNT (test code = 294 150-440 N PLT) MEAN PLATELET VOLUME (test code 9.5 fL 8.9-12.4 N = MPV) NEUTROPHIL % (test code = NT%) 68.8 % 42.2-75.2 N LYMPHOCYTE % (test code = LY%) 18.1 % 20.5-51.1 L MONOCYTE % (test code = MO%) 8.1 % 1.7-9.3 N EOSINOPHIL % (test code = EO%) 4.2 % 0.0-7.0 N BASOPHIL % (test code = BA%) 0.4 % 0-2.5 N NEUTROPHIL # (test code = NT#) 7.94 x10 3/uL 1.80-7.70 H LYMPHOCYTE # (test code = LY#) 2.09 x10 3/uL 1.00-4.80 N MONOCYTE # (test code = MO#) 0.93 x10 3/uL 0.00-0.80 H EOSINOPHIL # (test code = EO#) 0.49 x10 3/uL 0.00-0.45 H BASOPHIL # (test code = BA#) 0.05 x10 3/uL 0.0-0.20 N THROMBOPLASTIN TIME [id number] 18:50:00 Test Item Value Reference Range Interpretation Comments THROMBOPLASTIN TIME 63.2 SECONDS 26.0-35.9 H INTERPRE TATIVE PARTIAL (test code = DATA: erapeutic PTT) range: Unfractionated heparin:47 - 71 seconds Argatroban:1.5 to 3 times the basel ine PTT THROMBOPLASTIN TIME [id number] 13:15:00 Test Item Value Reference Range Interpretation Comments THROMBOPLASTIN TIME 64.1 SECONDS 26.0-35.9 H INTERPRE TATIVE PARTIAL (test code = DATA: erapeutic PTT) range: Unfractionated heparin:47 - 71 seconds Argatroban:1.5 to 3 times the basel ine PTT BASIC METABOLIC [id number] 06:40:00 Test Item Value Reference Range Interpretation Comments SODIUM (test code 141 MMOL/L 136-143 N = NA) POTASSIUM (test 3.6 MMOL/L 3.5-5.1 N code = K) CHLORIDE (test 108 MMOL/L 98-107 H code = CL) CARBON DIOXIDE 20 mmol/L 24-31 L (test code = CO2) GLUCOSE (test code 94 mg/dL 70-104 N = GLU) BLOOD UREA 9.4 MG/DL 7.0-21.0 N NITROGEN (test code = BUN) GLOMERULAR >=60 max >60 The estimated FILTRATION RATE estimate glomerular (test code = GFR) filtration rate is computed usingpatient ra ce, age (>18), sex, and serum creatinin e. If anyof the neede d data elements a re missing the Laboratory katey ot compute an estimation of t he glomerular filtration rate . CREATININE (test 0.4 mg/dL 0.8-1.5 L code = CREAT) CALCIUM (test code 8.0 mg/dL 8.8-10.2 L = CA) [id number] 06:40:00 Test Item Value Reference Range Interpretation Comments MAGNESIUM (test code = MAG) 1.8 mg/dL 1.4-2.6 N THROMBOPLASTIN TIME [id number] 05:56:00 Test Item Value Reference Range Interpretation Comments THROMBOPLASTIN TIME 41.3 SECONDS 26.0-35.9 H INTERPRE TATIVE PARTIAL (test code = DATA: erapeutic PTT) range: Unfractionated heparin:47 - 71 seconds Argatroban:1.5 to 3 times the basel ine PTT CBC W/AUTO [id number] 05:53:00 Test Item Value Reference Range Interpretation Comments WHITE BLOOD CELL (test code = 11.7 x10 3/uL 4.8-10.8 H WBC) RED BLOOD CELL (test code = 2.99 x10 6/uL 4.20-5.40 L RBC) HEMOGLOBIN (test code = HGB) 10.5 g/dL 14.5-20 L HEMATOCRIT (test code = HCT) 31.0 % 37.0-47.0 L MEAN CELL VOLUME (test code = 103.7 fL 81.0-99.0 H MCV) MEAN CELL HGB (test code = MCH) 35.1 pg 27-31 H MEAN CELL HGB CONCENTRATION 33.9 G/DL 33-36.5 N (test code = MCHC) RED CELL DISTRIBUTION WIDTH 13.7 % 12.9-16.9 N (test code = RDW) PLATELET COUNT (test code = 299 150-440 N PLT) MEAN PLATELET VOLUME (test code 9.5 fL 8.9-12.4 N = MPV) NEUTROPHIL % (test code = NT%) 65.9 % 42.2-75.2 N LYMPHOCYTE % (test code = LY%) 22.9 % 20.5-51.1 N MONOCYTE % (test code = MO%) 6.6 % 1.7-9.3 N EOSINOPHIL % (test code = EO%) 3.7 % 0.0-7.0 N BASOPHIL % (test code = BA%) 0.4 % 0-2.5 N NEUTROPHIL # (test code = NT#) 7.73 x10 3/uL 1.80-7.70 H LYMPHOCYTE # (test code = LY#) 2.68 x10 3/uL 1.00-4.80 N MONOCYTE # (test code = MO#) 0.77 x10 3/uL 0.00-0.80 N EOSINOPHIL # (test code = EO#) 0.43 x10 3/uL 0.00-0.45 N BASOPHIL # (test code = BA#) 0.05 x10 3/uL 0.0-0.20 N THROMBOPLASTIN TIME [id number] 23:32:00 Test Item Value Reference Range Interpretation Comments THROMBOPLASTIN TIME 47.1 SECONDS 26.0-35.9 H INTERPRE TATIVE PARTIAL (test code = DATA: erapeutic PTT) range: Unfractionated heparin:47 - 71 seconds Argatroban:1.5 to 3 times the basel ine PTT THROMBOPLASTIN TIME [id number] 16:30:00 Test Item Value Reference Range Interpretation Comments THROMBOPLASTIN TIME 81.4 SECONDS 26.0-35.9 H INTERPRE TATIVE PARTIAL (test code = DATA:Th erapeutic PTT) range: Unfractionated heparin:47 - 71 seconds Argatroban:1.5 to 3 times the basel ine PTT [id number] 14:59:00 Test Item Value Reference Range Interpretation Comments MAGNESIUM (test code = MAG) 2.9 mg/dL 1.4-2.6 H PLT RESPONSE TO [id number] 12:06:00 Test Item Value Reference Range Interpretation Comments PLT RESPONSE TO 34 PRU PRU Results Interpretation: PLAVIX (test code = Normal i ndividuals not PLAVRES) taking P2Y12 (p re-drug) 182-335 PRU [place] dence of P2Y12 receptor blockade <182 PRU Appropriate response to anti-platelet t herapyfor cardiology [place] <208 PRU Test results ar e in P2Y12 Reaction Units (PRU) whichindicate t he amount of ADP-mediated ag gregation specific tothe platelet P2Y12 receptor and is used to measure thee ffects of anti-platelet d rugs to this receptor, such asclopidogrel (Plavix). The r eference range for indiv idualsNOT receiving a P2Y 12 inhibitor is 182-335 PRU. PRU levelsless than 182 are indicative of a n anti-platelet e ffect dueto P2Y12 receptor blockade, Literature sugg ests that a PRUvalue less t smith 208 is an appropriate res ponse toanti-platlele t therapy for cardiology [place] ents (Refernce: Pr ice et al Circulation 2011:154:1132-1 137). Optimaltherapeu tic and pre-surgical DC U targets have not beenes tablished. PLT RESPONSE TO [id number] 12:06:00 Test Item Value Reference Range Interpretation Comments PLT RESPONSE TO 34 PRU () Test results are reported in PLAVIX (test code = P2Y12 Re action Units (PRU) PLAVRES) PRU reference r catherine is 194-418 PRU. Va lues <194 PRU arespecific evidence of a P2Y12 inhibit or effect. PRU Results Int erpretation: Normal individu als not taking P2Y12 (p re-drug) 182-335 PRU [place] dence of P2Y12 receptor blockade <182 PRU Appropriate response to anti-platelet t herapyfor cardiology [place] <208 PRU Test results ar e in P2Y12 Reaction Units (PRU) whichindicate t he amount of ADP-mediated ag gregation specific tothe platelet P2Y12 receptor and is used to measure thee ffects of anti-platelet d rugs to this receptor, such asclopidogrel (Plavix). The r eference range for indiv idualsNOT receiving a P2Y 12 inhibitor is 182-335 PRU. PRU levelsless than 182 are indicative of a n anti-platelet e ffect dueto P2Y12 receptor blockade, Literature sugg ests that a PRUvalue less t smith 208 is an appropriate res ponse toanti-platlele t therapy for cardiology [place] (Refernce: Pr ice et al Circulation 2011:154:1132-1 137). Optimaltherapeu tic and pre-surgical DC U targets have not beenestablished .Test results are reported in P2Y12 Reaction Units (PRU) PRU reference range is 194-418 PRU. Values <19 4 PRU arespecific [place] dence of a P2Y12 inhibitor effect. [id number] 09:16:00 Test Item Value Reference Range Interpretation Comments TROPONIN-I (test 5.12 ng/mL 0.00-0.30 Critical Ms lu reported code = TROPI) toFirst Name:Y URIL Last Name:CADY ROTHMAN READ BACK AND VERIFI Devan P.LAB.CAR1, on 02/22/20, @ 0916.INTERPRE TATIVE DATA:Negative o r inconclusive re uslts do not exclude myocardialinfar ction. Serial tests at appropriate int ervals may benecessary. Comments to Phleb: ADD TO AM LAB- XR CHEST 1 [id number] 07:34:00Patient Name: ROSIO RASHEED Unit No: [id number] EXAMS: CPT CODE: [id number] XR CHEST 1 V [id number] HISTORY: chest pain Location code: B2 FINDINGS: Frontal view of the chest demonstrates normal cardiomediastinal silhouette. The trachea is midline. The lungs are clear. There is no effusion or pneumothorax. The bones are intact. Right IJ catheter is in position. IMPRESSION: No acute pulmonary process. at 0734 Reported and signed by: Jack Echeverria M.D. CC: Babatunde Magallanes MD; Maulik Wright MD Technologist: Leatha Fonseca Time: DAP (Gy m2): Air Kerma (mGy): Trscr Dt/Tm: 02/22/2020 (9142) by:[email or web address] Printed Date/Time: 02/22/2020(0333) Name: ROSIO RASHEED [facility] Phys: Babatunde Keith [address] : 1965 Age: 55 Sex: [place] [address] Loc: P.0220 1 Exam Date: 02/22/2020 Status: ADM IN PH: FAX: PAGE 1 Signed [id number] 07:31:00 Test Item Value Reference Range Interpretation Comments MAGNESIUM (test code = MAG) 1.6 mg/dL 1.4-2.6 N LACTIC [id number] 05:55:00 Test Item Value Reference Range Interpretation Comments LACTIC ACID (test code = LACT) 6.9 mg/dL 4.5-18.0 N COMPREHENSIVE METABOLIC [id number] 05:08:00 Test Item Value Reference Range Interpretation Comments SODIUM (test code = 142 MMOL/L 136-143 N NA) POTASSIUM (test 3.8 MMOL/L 3.5-5.1 N code = K) CHLORIDE (test code 111 MMOL/L 98-107 H = CL) CARBON DIOXIDE 20 mmol/L 24-31 L (test code = CO2) GLUCOSE (test code 98 mg/dL 70-104 N = GLU) BLOOD UREA NITROGEN 9.9 MG/DL 7.0-21.0 N (test code = BUN) GLOMERULAR >=60 max >60 The estimated FILTRATION RATE estimate glomerular (test code = GFR) filtration rate is computed usingpatient ra ce, age (>18), sex, and serum creatinin e. If anyof the ne eded data elements a re missing the Laboratory katey ot compute an estimation of t he glomerular filtration rate . CREATININE (test 0.3 mg/dL 0.8-1.5 L code = CREAT) TOTAL PROTEIN (test 5.3 g/dL 6.3-8.3 L code = PROT) ALBUMIN (test code 3.0 G/DL 3.5-5.0 L = ALB) CALCIUM (test code 7.8 mg/dL 8.8-10.2 L = CA) BILIRUBIN TOTAL 0.2 mg/dL 0.2-1.0 N (test code = BILT) SGOT/AST (test code 38 IU/L 10-34 H = AST) SGPT/ALT (test code 28 U/L 10-36 N = ALT) ALKALINE 97 U/L 32-104 N PHOSPHATASE (test code = ALKP) PROTHROMBIN [id number] 04:51:00 Test Item Value Reference Range Interpretation Comments PROTHROMBIN TIME 10.9 SECONDS 10.3-12.9 N PATIENT (test code = PTP) INTERNATIONAL 0.97 INR UNIT 0.9-1.11 N The INR is us eful only NORMAL RATIO (test for monit oring code = INR) anticoagulant therapy.It may be unreliable in t he initial phase o f antigoagulation and in unstable patien ts. Indication for Anticoagulation Recommended INR 1. Prevention of v enous thomboembolism 2.0-3.0in high- risk patients; treat ment of venousthrombosi s and pulmonary embol ism aftera course o f heparin; preven tion of systemicembolis m in a variety of cond itions, including atria l fibrillation an d prothetic tissu e heart valves, 2. Pros thetic mechanical hear t valves; 2.5-3.5recurren t systemic emboli sm. THROMBOPLASTIN TIME [id number] 04:51:00 Test Item Value Reference Range Interpretation Comments THROMBOPLASTIN TIME 28.4 SECONDS 26.0-35.9 N INTERPRE TATIVE PARTIAL (test code = DATA:Th erapeutic PTT) range: Unfractionated heparin:47 - 71 seconds Argatroban:1.5 to 3 times the basel ine PTT CBC W/AUTO [id number] 04:48:00 Test Item Value Reference Range Interpretation Comments WHITE BLOOD CELL (test code = 10.0 x10 3/uL 4.8-10.8 N WBC) RED BLOOD CELL (test code = 2.96 x10 6/uL 4.20-5.40 L RBC) HEMOGLOBIN (test code = HGB) 10.3 g/dL 14.5-20 L HEMATOCRIT (test code = HCT) 30.7 % 37.0-47.0 L MEAN CELL VOLUME (test code = 103.7 fL 81.0-99.0 H MCV) MEAN CELL HGB (test code = MCH) 34.8 pg 27-31 H MEAN CELL HGB CONCENTRATION 33.6 G/DL 33-36.5 N (test code = MCHC) RED CELL DISTRIBUTION WIDTH 13.7 % 12.9-16.9 N (test code = RDW) PLATELET COUNT (test code = 262 150-440 N PLT) MEAN PLATELET VOLUME (test code 9.4 fL 8.9-12.4 N = MPV) NEUTROPHIL % (test code = NT%) 61.3 % 42.2-75.2 N LYMPHOCYTE % (test code = LY%) 27.1 % 20.5-51.1 N MONOCYTE % (test code = MO%) 7.1 % 1.7-9.3 N EOSINOPHIL % (test code = EO%) 3.5 % 0.0-7.0 N BASOPHIL % (test code = BA%) 0.6 % 0-2.5 N NEUTROPHIL # (test code = NT#) 6.14 x10 3/uL 1.80-7.70 N LYMPHOCYTE # (test code = LY#) 2.71 x10 3/uL 1.00-4.80 N MONOCYTE # (test code = MO#) 0.71 x10 3/uL 0.00-0.80 N EOSINOPHIL # (test code = EO#) 0.35 x10 3/uL 0.00-0.45 N BASOPHIL # (test code = BA#) 0.06 x10 3/uL 0.0-0.20 N LACTIC [id number] 22:35:00 Test Item Value Reference Range Interpretation Comments LACTIC ACID (test code = LACT) 11.2 mg/dL 4.5-18.0 N Coronavirus 2019 nCoV [id number] 22:14:00 Test Item Value Reference Range Interpretation Comments Coronavirus 2019 nCoV Bedside (test Negative NEGATIVE code = [id number]) COMPREHENSIVE METABOLIC [id number] 18:31:00 Test Item Value Reference Range Interpretation Comments SODIUM (test code = 141 MMOL/L 136-143 N NA) POTASSIUM (test 3.7 MMOL/L 3.5-5.1 N code = K) CHLORIDE (test code 109 MMOL/L 98-107 H = CL) CARBON DIOXIDE 19 mmol/L 24-31 L (test code = CO2) GLUCOSE (test code 112 mg/dL 70-104 H = GLU) BLOOD UREA NITROGEN 11.3 MG/DL 7.0-21.0 N (test code = BUN) GLOMERULAR >=60 max >60 The estimated FILTRATION RATE estimate glomerular (test code = GFR) filtration rate is computed usingpatient ra ce, age (>18), sex, and serum creatinin e. If anyof the ne eded data elements a re missing the Laboratory katey ot compute an estimation of t he glomerular filtration rate . CREATININE (test 0.4 mg/dL 0.8-1.5 L code = CREAT) TOTAL PROTEIN (test 5.2 g/dL 6.3-8.3 L code = PROT) ALBUMIN (test code 3.1 G/DL 3.5-5.0 L = ALB) CALCIUM (test code 7.8 mg/dL 8.8-10.2 L = CA) BILIRUBIN TOTAL 0.2 mg/dL 0.2-1.0 N (test code = BILT) SGOT/AST (test code 44 IU/L 10-34 H = AST) SGPT/ALT (test code 29 U/L 10-36 N = ALT) ALKALINE 114 U/L 32-104 H PHOSPHATASE (test code = ALKP) [id number] 18:31:00 Test Item Value Reference Range Interpretation Comments MAGNESIUM (test code = MAG) 1.7 mg/dL 1.4-2.6 N LIPOPROTEIN [id number] 18:31:00 Test Item Value Reference Range Interpretation Comments LIPOPROTEIN LDL (test code = LDL) mg/dL [id number] 17:29:00 Test Item Value Reference Range Interpretation Comments TROPONIN-I (test 8.60 ng/mL 0.00-0.30 HH Critical Va lue reported code = TROPI) toFirst Name:I Last Name:CAMRYN OLGUINR ESULTS READ BACK AND DEMETRIA Hartman P.LAB.RS, on , @ 2794.INTERPRETA TIVE DATA:Negative o r inconclusive re uslts do not exclude myocardialinfar ction. Serial tests at appropriate int ervals may benecessary. PROTHROMBIN [id number] 17:20:00 Test Item Value Reference Range Interpretation Comments PROTHROMBIN TIME 10.7 SECONDS 10.3-12.9 N PATIENT (test code = PTP) INTERNATIONAL 0.95 INR UNIT 0.9-1.11 N The INR is us eful only NORMAL RATIO (test for monit oring code = INR) anticoagulant therapy.It may be unreliable in t he initial phase o f antigoagulation and in unstable patien ts. Indication for Anticoagulation Recommended INR 1. Prevention of v enous thomboembolism 2.0-3.0in high- risk patients; treat ment of venousthrombosi s and pulmonary embol ism aftera course o f heparin; preven tion of systemicembolis m in a variety of cond itions, including atria l fibrillation an d prothetic tissu e heart valves, 2. Pros thetic mechanical hear t valves; 2.5-3.5recurren t systemic emboli sm. THROMBOPLASTIN TIME [id number] 17:20:00 Test Item Value Reference Range Interpretation Comments THROMBOPLASTIN TIME 29.2 SECONDS 26.0-35.9 N INTERPRE TATIVE PARTIAL (test code = DATA: erapeutic PTT) range: Unfractionated heparin:47 - 71 seconds Argatroban:1.5 to 3 times the basel ine PTT CBC W/AUTO [id number] 17:09:00 Test Item Value Reference Range Interpretation Comments WHITE BLOOD CELL (test code = 12.5 x10 3/uL 4.8-10.8 H WBC) RED BLOOD CELL (test code = 3.31 x10 6/uL 4.20-5.40 L RBC) HEMOGLOBIN (test code = HGB) 11.5 g/dL 14.5-20 L HEMATOCRIT (test code = HCT) 34.1 % 37.0-47.0 L MEAN CELL VOLUME (test code = 103.0 fL 81.0-99.0 H MCV) MEAN CELL HGB (test code = MCH) 34.7 pg 27-31 H MEAN CELL HGB CONCENTRATION 33.7 G/DL 33-36.5 N (test code = MCHC) RED CELL DISTRIBUTION WIDTH 13.7 % 12.9-16.9 N (test code = RDW) PLATELET COUNT (test code = 297 150-440 N PLT) MEAN PLATELET VOLUME (test code 9.3 fL 8.9-12.4 N = MPV) NEUTROPHIL % (test code = NT%) 62.2 % 42.2-75.2 N LYMPHOCYTE % (test code = LY%) 24.1 % 20.5-51.1 N MONOCYTE % (test code = MO%) 9.3 % 1.7-9.3 N EOSINOPHIL % (test code = EO%) 3.5 % 0.0-7.0 N BASOPHIL % (test code = BA%) 0.5 % 0-2.5 N NEUTROPHIL # (test code = NT#) 7.77 x10 3/uL 1.80-7.70 H LYMPHOCYTE # (test code = LY#) 3.01 x10 3/uL 1.00-4.80 N MONOCYTE # (test code = MO#) 1.16 x10 3/uL 0.00-0.80 H EOSINOPHIL # (test code = EO#) 0.44 x10 3/uL 0.00-0.45 N BASOPHIL # (test code = BA#) 0.06 x10 3/uL 0.0-0.20 N - XR CHEST 1 [id number] 10:20:00 Name: ROSIO RASHEED [facility] : 1965 Age/S: 55 / F [id number] Unit #: [id number] Loc: [place] [address] Phys: Donny Orantes MD Acct: [id number] Dis Date: Status: ADM IN PHONE #: [phone] Exam Date: 02/21/2020 1016 FAX #: Reason: CHF EXAMS: CPT: [id number] XR CHEST 1 V 16743 Fluoro Time: DAP (Gy m2): Air Kerma (mGy): Location of dictation: B2 Portable chest one view. HISTORY: CHF COMMENT: Compared to one day prior. A right-sided central line remains in place.The heart and mediastinum are normal. There are patchy infiltrates in the left lung base likely atele ctasis. No consolidation, pneumothorax or effusion and no evidence for heart failure. Visualized soft tissues and skeletal structures are unremarkable. IMPRESSION: Interval development of patchy left lower lobe atelectasis. at 1020 Reported and signed by: Anabel Carballo M.D. CC: Donny Orantes MD PAGE 1 Signed Report Name: ROSIO RASHEED [place] : 1965 Age/S: 55 / F [id number] Unit #: [id number] Loc: [place] [address] Phys: Donny Orantes MD Acct: [id number] Dis Date: Status: ADM IN PHONE #: [phone] Exam Date: 02/21/2020 1018 FAX #: Reason: CHF EXAMS: CPT: [id number] XR CHEST 1 V 70546 Fluoro Time: DAP (Gy m2): Air Kerma (mGy): (Continued) Technologist: Bill Booth RT(R)(MR) Trnscb Date/Time: 02/21/2020 (1020) [email or web address] Orig Print D/T: S: 02/21/2020 (1023) PAGE 2 Signed ReportBASIC METABOLIC [id number] 06:43:00 Test Item Value Reference Range Interpretation Comments SODIUM (test code = NA) 142 mmol/L 134-147 N POTASSIUM (test code = 3.4 mmol/L 3.4-5.0 N K) CHLORIDE (test code = 115 mmol/L 100-108 H CL) CARBON DIOXIDE (test 21 mmol/L 21-32 N code = CO2) ANION GAP (test code = 6.0 GAP calc 4.0-15.0 N GAP) GLUCOSE (test code = 120 MG/DL 70-110 H GLU) BLOOD UREA NITROGEN 8 MG/DL 7-18 N (test code = BUN) GLOMERULAR FILTRATION >=60 max estimate >60 RATE (test code = GFR) estGFR CREATININE (test code = 0.6 MG/DL 0.6-1.0 N CREAT) CALCIUM (test code = CA) 8.1 MG/DL 8.5-10.1 L BASIC METABOLIC [id number] 06:33:00 Test Item Value Reference Range Interpretation Comments SODIUM (test code = NA) 142 mmol/L 134-147 N POTASSIUM (test code = K) 3.4 mmol/L 3.4-5.0 N CHLORIDE (test code = CL) 115 mmol/L 100-108 H CARBON DIOXIDE (test code = CO2) 21 mmol/L 21-32 N ANION GAP (test code = GAP) 6.0 GAP calc 4.0-15.0 N GLUCOSE (test code = GLU) 120 MG/DL 70-110 H BLOOD UREA NITROGEN (test code = 8 MG/DL 7-18 N BUN) GLOMERULAR FILTRATION RATE (test estGFR >60 code = GFR) CREATININE (test code = CREAT) MG/DL 0.6-1.0 CALCIUM (test code = CA) 8.1 MG/DL 8.5-10.1 L CBC W/AUTO [id number] 06:25:00 Test Item Value Reference Range Interpretation Comments WHITE BLOOD CELL (test code = 11.4 K/mm3 3.5-11.0 H WBC) RED BLOOD CELL (test code = RBC) 3.51 M/mm3 4.70-6.10 L HEMOGLOBIN (test code = HGB) 11.7 G/DL 10.4-14.9 N HEMATOCRIT (test code = HCT) 36.5 % 31.5-44.1 N MEAN CELL VOLUME (test code = 104.0 Fl 84.5-98.6 H MCV) MEAN CELL HGB (test code = MCH) 33.3 pg 27.0-34.2 N MEAN CELL HGB CONCETRATION (test 32.1 G/DL 31.5-34.0 N code = MCHC) RED CELL DISTRIBUTION WIDTH (test 13.8 SD 11.5-14.5 N code = RDW) PLATELET COUNT (test code = PLT) 324.0 K/mm3 150-450 N MEAN PLATELET VOLUME (test code = 8.90 fL 7.0-10.5 N MPV) NEUTROPHIL % (test code = NT%) 66.8 % 40-76 N LYMPHOCYTE % (test code = LY%) 20.6 % 20.5-51.1 N MONOCYTE % (test code = MO%) 9.1 % 1.7-9.3 N EOSINOPHIL % (test code = EO%) 3.3 % 0.0-6.0 N BASOPHIL % (test code = BA%) 0.2 % 0.0-2.0 N NEUTROPHIL # (test code = NT#) 7.60 K/mm3 1.8-7.6 N LYMPHOCYTE # (test code = LY#) 2.3 K/mm3 0.6-3.2 N MONOCYTE # (test code = MO#) 1.0 K/mm3 0.3-1.1 N EOSINOPHIL # (test code = EO#) 0.4 K/mm3 0.0-0.4 N BASOPHIL # (test code = BA#) 0.0 K/mm3 0.0-0.1 N MANUAL DIFF REQUIRED (test code = NO DIFF/SCN CRITERIA MDIFF) - US GUIDANCE [facility] [id number] 16:45:00 Name: ROSIO RASHEED [facility] : 1965 Age/S: 55 / F [address] Unit #:[id number] Loc: [place] [address] Phys: Donny Orantes MD Acct: [id number] Dis Date: Status:ADM IN PHONE #: [phone] Exam Date: 02/20/2020 1618 FAX #: Reason: IV access EXAMS: CPT: [id number] US GUIDANCE [facility] ACCESS [id number] EXAMINATION: NONTUNNELED CENTRAL VENOUS CATHETER PLACEMENT USING ULTRASOUND GUIDANCE. LOCATION: S17. HISTORY: Hypotension, need for IV access, syncope, chest pain, request is made for central line in ICU. COMPARISON: None. SEDATION: The patient did not require conscious sedation for the procedure. TECHNIQUE: The risks, benefits and alternatives were discussed and informed consent was obtained. Prior to beginning the procedure, [place] Protocol was used to confirm the patient's identity and planned procedure. Maximum sterile barriers including cap, mask, hand hygiene, sterile gloves, sterile gown, large sterile drape and cutaneous antisepsis were used. SITE: The skin over the right internal jugular vein was sterilely prepped, draped and infiltrated with 1% lidocaine. Prior to the procedure, the target vessel was evaluated by ultrasound. An image of the patent vessel was recorded and saved in PACS. After sterile prep, this vessel was accessed using realtime ultrasound guidance. A guidewire and catheter were then passed centrally. After dilating the tract, a 15cm triple-lumen central venous catheter was inserted over the guidewire. The catheter was flushed with saline and secured in place. A sterile dressing was applied. ESTIMATED BLOOD LOSS: less than 30 milliliters. DISCHARGED TO: Performed at bedside in ICU. CONDITION: Stable. FINDINGS: The post procedure chest x-ray image demonstrates the catheter with its tip in the right atrium. No complications are seen. PAGE 1 Signed Report (CONTINUED) Name: ROSIO RASHEED [facility] : 1965 Age/S: 55 / F [id number] [place] [address] Unit #: [id number] Loc: [place] [address] Phys: Donny Orantes MD Ac ct: [id number] Dis Date: Status: ADM IN PHONE #: [phone] Exam Date: 02/20/20201615 FAX #: Reason: IV access EXAMS: CPT: [id number] US GUIDANCE [facility] ACCESS [id number] (Continued) IMPRESSION: Successful nontunneled triple-lumen central venous catheter placement via the right internal jugular vein. PLAN: The catheter is ready for immediate use. When treatment is completed, this catheter can be removedat the bedside according to standard hospital protocol. at 1645 Reported and signed by: Adolfo Mendez M.D. CC: Donny Orantes MD Technologist: Brenda Quintanilla Trnscb Date/Time: 02/20/2020 (1645) [email or web address] PAGE 2 Signed Report Name: ROSIO RASHEED [facility] : 1965 Age/S: 55 / F [address] [place] [address] Unit #: [id number] Loc: [place] [address] Phys: Donny Orantes MD Acct: [id number] Dis Date: Status: ADM IN PHONE #: [phone] Exam Date: 02/20/2020 161 FAX #: Reason: IV access EXAMS: CPT: [id number] US GUIDANCE [facility] ACCESS [id number] (Continued) Orig Print D/T: S: 02/20/2020 (1648) Probe: PAGE 3 Signed Report- XR CHEST 1 [id number] 16:30:00 Name: ROSIO RASHEED [facility] : 1965 Age/S: 55 / F [address] Unit #: [id number] Loc: [place] [address] Phys: Zena Mendez MD Acct: [id number] Dis Date: Status: ADM IN PHONE #: [phone] Exam Date: 02/20/2020 1622 FAX #: Reason: S/P CENTRAL LINE PLACEMENT EXAMS: CPT: [id number] XR CHEST 1 V 13426 Fluoro Time: DAP (Gy m2): Air Kerma (mGy): CHEST 1 VIEW CLINICAL INFORMATION: S/P CENTRAL LINE PLACEMENT COMPARISON: None FINDINGS: The tip of the right jugular approach central venous catheter terminates in the high right atrium. No pneumothorax or pleural effusion is present. The lungs are slightly underexpanded. The cardiac silhouette is normal in size. The bonesare grossly intact. IMPRESSION: The tip of the right jugular central line terminates in the high right atrium. LOCATION: B2 at 1630 Reported and signed by: Galdino Esparza M.D. CC: Donny Orantes MD; Zena Mendez MD PAGE 1 Signed Report [facility] [place] [facility] 1965 Age/S: 55 / F [address] [facility] Unit #: [id number] Loc: [place] [address] Phys: Zena Mendez MD Acct: [id number] Dis Date: Status: ADM IN PHONE #: [phone] Exam Date: 02/20/2020 1622 FAX #: Reason: S/P CENTRAL LINE PLACEMENT EXAMS: CPT: [id number] XR CHEST 1 V 80710 Fluoro Time: DAP (Gy m2): Air Kerma (mGy): (Continued) Techno logist: Carlos Sneed, RT(R)(CT) Trnscb Date/Time: 02/20/2020 (1630) [email or web address] Orig Print D/T: S: 02/20/2020 (1633) PAGE 2 [facility] 2020-[facility] 15:13:00 Test Item Value Reference Range Interpretation Comments HEMOGLOBIN (test code = HGB) 12.5 G/DL 10.4-14.9 N HEMATOCRIT (test code = HCT) 37.6 % 31.5-44.1 N - CT HEAD/BRAIN W/O [id number] 08:25:00 [facility] [place] [facility] 1965 Age/S: 55 / F [address] Unit #: [id number] Loc: [place] [address] Phys: Donny Orantes MD Acct: [id number] Dis Date: Status: ADM IN PHONE #: [phone] Exam Date: 02/20/2020819 FAX #: Reason: s/p fall, headache, syncope EXAMS: CPT: [id number] CT HEAD/BRAIN W/O CONT [id number] Dictation location: U19. CT HEAD WITHOUT CONTRAST. HISTORY: s/p fall, headache, syncope COMPARISON: No comparison is available. TECHNIQUE: Axial CT images of the head were obtained with coronal and/or sagittal reformatted views. Automated exposure control, iterative reconstruction technique, and/or adjustment of mA and/or kV according to patient's sizewas utilized for radiation dose reduction. IV CONTRAST: None. FINDINGS: No intracranial abnormalities such as hemorrhage, mass, mass effect, hydrocephalus, midline shift, extra-axial fluid collection or secondary signs of an acute infarct are noted. The calvarium and skull base are intact. The visualized paranasal sinus and mastoid air cells are clear. IMPRESSION: No evidence of acute intracranial abnormality. at 0825 Reported and signed by: Gaviota Jones M.D. CC: Donny Orantes MD Technologist:Francesco Penaloza, RT(R)(CT); Candelario CTDI: DLP: Trnscb Date/Time: 02/20/2020 (824) [email or web address] Orig Print D/T: S: 02/20/2020(827) PAGE 1 Signed ReportBASIC METABOLIC [id number] 06:33:00 Test Item Value Reference Range Interpretation Comments SODIUM (test code = NA) 138 mmol/L 134-147 N POTASSIUM (test code = 4.2 mmol/L 3.4-5.0 N K) CHLORIDE (test code = 110 mmol/L 100-108 H CL) CARBON DIOXIDE (test 22 mmol/L 21-32 N code = CO2) ANION GAP (test code = 6.0 GAP calc 4.0-15.0 N GAP) GLUCOSE (test code = 84 MG/DL 70-110 N GLU) BLOOD UREA NITROGEN 7 MG/DL 7-18 N (test code = BUN) GLOMERULAR FILTRATION >=60 max estimate >60 RATE (test code = GFR) estGFR CREATININE (test code = 0.5 MG/DL 0.6-1.0 L CREAT) CALCIUM (test code = CA) 8.5 MG/DL 8.5-10.1 N Completed by Nursing: NOLIPID PROFILE (CORONARY RISK)2020-02-20 06:33:00 Test Item Value Reference Range Interpretation Comments TRIGLYCERIDES (test code = TRIG) 160 MG/DL 0-150 H CHOLESTEROL (test code = CHOL) 177 MG/DL 133-200 N CHOLESTEROL/HDL RATIO (test code = 3.47 RATIO >0 CHOLHDL) HDL CHOLESTEROL (test code = HDL) 51 MG/DL 40-59 N NON-HDL CHOLESTEROL (test code = 126 mg/dL <130 NHDL) LIPOPROTEIN LDL (test code = LDL) 108 MG/DL 0-129 N LDL/HDL (test code = LDL/HDL) 2.11 Ratio 1.48-3.22 Avg N Completed by Nursing: [id number] 06:33:00 Test Item Value Reference Range Interpretation Comments TROPONIN-I (test 26.500 NG/ML 0.000-0.045 HH Negative: < /= 0.045 code = TROPI) Positive: >/= 0.046 Correlation wit h serial results, other cardiac markers, and cl inical findings is nec essary to determine the c linical significance of this result. Quantit ative results using d ifferent methodologies s hould not be compared to one another as nume rical results may hina yby method. Completed by Nursing: NOGLYCOSYLATED HEMOGLOBIN [id number] 06:03:00 Test Item Value Reference Range Interpretation Comments GLYCOSYLATED HEMOGLOBIN (HA1C) 4.9 % A1C 0.0-5.7 N (test code = GLYHGB) ESTIMATED AVERAGE GLUCOSE (test 94 MG/DLest code = EAG) CBC W/AUTO [id number] 05:58:00 Test Item Value Reference Range Interpretation Comments WHITE BLOOD CELL (test code = 12.3 K/mm3 3.5-11.0 H WBC) RED BLOOD CELL (test code = RBC) 3.86 M/mm3 4.70-6.10 L HEMOGLOBIN (test code = HGB) 13.0 G/DL 10.4-14.9 N HEMATOCRIT (test code = HCT) 39.4 % 31.5-44.1 N MEAN CELL VOLUME (test code = 102.1 Fl 84.5-98.6 H MCV) MEAN CELL HGB (test code = MCH) 33.7 pg 27.0-34.2 N MEAN CELL HGB CONCETRATION (test 33.0 G/DL 31.5-34.0 N code = MCHC) RED CELL DISTRIBUTION WIDTH (test 13.8 SD 11.5-14.5 N code = RDW) PLATELET COUNT (test code = PLT) 343.0 K/mm3 150-450 N MEAN PLATELET VOLUME (test code = 9.00 fL 7.0-10.5 N MPV) NEUTROPHIL % (test code = NT%) 72.6 % 40-76 N LYMPHOCYTE % (test code = LY%) 15.9 % 20.5-51.1 L MONOCYTE % (test code = MO%) 9.8 % 1.7-9.3 H EOSINOPHIL % (test code = EO%) 1.6 % 0.0-6.0 N BASOPHIL % (test code = BA%) 0.1 % 0.0-2.0 N NEUTROPHIL # (test code = NT#) 8.92 K/mm3 1.8-7.6 H LYMPHOCYTE # (test code = LY#) 2.0 K/mm3 0.6-3.2 N MONOCYTE # (test code = MO#) 1.2 K/mm3 0.3-1.1 H EOSINOPHIL # (test code = EO#) 0.2 K/mm3 0.0-0.4 N BASOPHIL # (test code = BA#) 0.0 K/mm3 0.0-0.1 N MANUAL DIFF REQUIRED (test code = NO DIFF/SCN CRITERIA MDIFF) Comment: okCOAGULATION TIME [id number] 19:59:00 Test Item Value Reference Range Interpretation Comments COAGULATION TIME ACTIVATED (test 142 SECistat 74-125 H code = ACT) COAGULATION TIME [id number] 18:45:00 Test Item Value Reference Range Interpretation Comments COAGULATION TIME ACTIVATED (test 159 SECistat 74-125 H code = ACT) COAGULATION TIME [id number] 18:44:00 Test Item Value Reference Range Interpretation Comments COAGULATION TIME ACTIVATED (test 175 SECistat 74-125 H code = ACT) GLUCOSE BEDSIDE [id number] 18:04:00 Test Item Value Reference Range Interpretation Comments GLUCOSE BEDSIDE TESTING (test code 104 mg/dL 70-110 N = GLUBED) COAGULATION TIME [id number] 16:42:00 Test Item Value Reference Range Interpretation Comments COAGULATION TIME ACTIVATED (test 195 SECistat 74-125 H code = ACT) COAGULATION TIME [id number] 15:28:00 Test Item Value Reference Range Interpretation Comments COAGULATION TIME ACTIVATED (test 226 SECistat 74-125 H code = ACT) COAGULATION TIME [id number] 14:50:00 Test Item Value Reference Range Interpretation Comments COAGULATION TIME ACTIVATED (test 300 SECistat 74-125 H code = ACT) COAGULATION TIME [id number] 12:37:00 Test Item Value Reference Range Interpretation Comments COAGULATION TIME ACTIVATED (test 251 SECistat 74-125 H code = ACT) RULE OUT SC [id number] 11:36:00 Test Item Value Reference Range Interpretation Comments CREATINE KINASE 794 Unit/L 26-192 H (CK) (test code = CK) TROPONIN-I (test 7.150 NG/ML 0.000-0.045 HH Negative: < /= 0.045 code = TROPI) Positive: >/= 0.046 Correlation wit h serial results, other cardiac markers, and cl inical findings is nec essary to determine th e clinical signif icance of this result. Quantitative re sults using different methodologies s hould not be compared to one another as nume rical results may hina yby method. BASIC METABOLIC [id number] 11:31:00 Test Item Value Reference Range Interpretation Comments SODIUM (test code = NA) 138 mmol/L 134-147 N POTASSIUM (test code = 4.5 mmol/L 3.4-5.0 N K) CHLORIDE (test code = 109 mmol/L 100-108 H CL) CARBON DIOXIDE (test 23 mmol/L 21-32 N code = CO2) ANION GAP (test code = 6.0 GAP calc 4.0-15.0 N GAP) GLUCOSE (test code = 106 MG/DL 70-110 N GLU) BLOOD UREA NITROGEN 10 MG/DL 7-18 N (test code = BUN) GLOMERULAR FILTRATION >=60 max estimate >60 RATE (test code = GFR) estGFR CREATININE (test code = 0.6 MG/DL 0.6-1.0 N CREAT) CALCIUM (test code = CA) 8.7 MG/DL 8.5-10.1 N PROTHROMBIN [id number] 11:05:00 Test Item Value Reference Range Interpretation Comments PT PATIENT (test code = PTP) 12.2 SECONDS 9.3-12.9 N INTERNATIONAL NORMAL RATIO 1.08 INR Unit 0.8-1.2 N (test code = INR) THROMBOPLASTIN TIME [id number] 11:05:00 Test Item Value Reference Range Interpretation Comments THROMBOPLASTIN TIME PARTIAL 92.1 SECONDS 26-35 H (test code = PTT) CBC W/AUTO [id number] 11:05:00 Test Item Value Reference Range Interpretation Comments WHITE BLOOD CELL (test code = 14.2 K/mm3 3.5-11.0 H WBC) RED BLOOD CELL (test code = RBC) 4.27 M/mm3 4.70-6.10 L HEMOGLOBIN (test code = HGB) 14.2 G/DL 10.4-14.9 N HEMATOCRIT (test code = HCT) 43.7 % 31.5-44.1 N MEAN CELL VOLUME (test code = 102.3 Fl 84.5-98.6 H MCV) MEAN CELL HGB (test code = MCH) 33.3 pg 27.0-34.2 N MEAN CELL HGB CONCETRATION (test 32.5 G/DL 31.5-34.0 N code = MCHC) RED CELL DISTRIBUTION WIDTH (test 13.8 SD 11.5-14.5 N code = RDW) PLATELET COUNT (test code = PLT) 381.0 K/mm3 150-450 N MEAN PLATELET VOLUME (test code = 9.00 fL 7.0-10.5 N MPV) NEUTROPHIL % (test code = NT%) 67.7 % 40-76 N LYMPHOCYTE % (test code = LY%) 23.2 % 20.5-51.1 N MONOCYTE % (test code = MO%) 6.9 % 1.7-9.3 N EOSINOPHIL % (test code = EO%) 2.0 % 0.0-6.0 N BASOPHIL % (test code = BA%) 0.2 % 0.0-2.0 N NEUTROPHIL # (test code = NT#) 9.63 K/mm3 1.8-7.6 H LYMPHOCYTE # (test code = LY#) 3.3 K/mm3 0.6-3.2 H MONOCYTE # (test code = MO#) 1.0 K/mm3 0.3-1.1 N EOSINOPHIL # (test code = EO#) 0.3 K/mm3 0.0-0.4 N BASOPHIL # (test code = BA#) 0.0 K/mm3 0.0-0.1 N MANUAL DIFF REQUIRED (test code = NO DIFF/SCN CRITERIA MDIFF) Comment: IF NOT ALREADY DONE WITHIN THE LAST 24 HOURS
[2022-05-22] MEDS ORDERED: LIDOCAINE 1% W/EPI 1:100,000 MDV 50 ML VIAL ONE (10:37)
--- NOTE | 2022-05-22 10:40 | ER ---
Nurse's Notes [facility] Name: Aylin Cespedes Age: 57 yrs Sex: Female : 1965 Arrival Date: 05/22/2022 Time: 09:58 Bed 10 Private MD: Diagnosis: Cutaneous abscess of groin Presentation: 05/22 10:11 Chief complaint: Patient states: abscess to "[facility] area" that began 4 days ago. ss Coronavirus screen: Client denies travel out of the [place] in the last 14 days. Ebola Screen: Patient denies exposure to infectious person. Patient denies travel to an Ebola-affected area in the 21 days before illness onset. Initial Sepsis Screen: Does the patient meet any 2 criteria? HR > 90 bpm. No. Patient's initial sepsis screen is negative. Does the patient have a suspected source of infection? Yes: Other: abscess. Risk Assessment: Do you want to hurt yourself or someone else? Patient reports no desire to harm self or others. Onset of symptoms was May 18, 2022. 10:11 Method Of Arrival: Ambulatory 10:11 Acuity: ALBAN 3 ss Historical: - Allergies: 10:13 PENICILLINS; ss - PMHx: 10:13 Myocardial infarction; high cholesterol; "pre diabetic"; ss - PSHx: 10:13 cardiac stents x 4; ss - Immunization history:: Client reports receiving the 2nd dose of the Covid vaccine. - Social history:: Smoking status: Patient reports the use of cigarette tobacco products, smokes one pack cigarettes per day. Screenin:57 Abuse screen: Denies threats or abuse. Denies injuries from another. Nutritional ss screening: No deficits noted. Tuberculosis screening: Never had TB. Fall Risk None identified. Assessment: 10:57 Reassessment: Patient appears in no apparent distress at this time. at bedside. ss Patient states feeling better. Vital Signs: 10:11 BP 155 / 98; Pulse 122; Resp 16; Temp 97.8(TE); Pulse Ox 97% on R/A; Weight 79.38 kg; ss Height 5 ft. 6 in. (167.64 cm); Pain 10/10; 10:11 Body Mass Index 28.25 (79.38 kg, 167.64 cm) ED Course: :58 Patient arrived in ED. rg4 10:13 Triage completed. ss 10:13 Arm band placed on right wrist. ss 10:17 Devyn Purvis is PHCP. jl9 10:17 Hudson Vásquez MD is Attending Physician. jl9 10:52 Kiarra Metcalf, RN is Primary Nurse. ss 10:57 Patient has correct armband on for positive identification. Bed in low position. Call ss light in reach. 10:57 No provider procedures requiring assistance completed. Patient did not have IV access ss during this emergency room visit. Wound care: performed by JENNIFER Shepard. Administered Medications: 10:35 Drug: Lidocaine (1 %) 10 ml {Note: administered by JENNIFER Shepard.} Volume: 20 ml; Route: ss Infiltration; 10:57 Drug: Squires (HYDROcodone-acetaminophen) (7.5 mg-325 mg) 1 tabs Route: PO; ss 10:57 Follow up: Response: Medication administered at discharge.; RASS: Alert and Calm (0) ss Medication: 10:57 VIS not applicable for this client. ss Outcome: 10:40 Discharge ordered by . jl9 10:57 Discharged to home ambulatory, with family. ss 10:57 Condition: good 10:57 Discharge instructions given to patient, family, Instructed on discharge instructions, follow up and referral plans. medication usage, wound care, Demonstrated understanding of instructions, follow-up care, medications, wound care, Prescriptions given X 1. 10:59 Patient left the ED. ss Signatures: Kiarra Metcalf, RN RN Ashley Rea rg4 Devyn Purvis jl9
--- NOTE | 2022-05-22 10:40 | EDPHYS ---
Physician Documentation [facility] Name: Aylin Cespedes Age: 57 yrs Sex: Female : 1965 Arrival Date: 05/22/2022 Time: 09:58 Bed 10 Private MD: ED Physician Hudson Vásquez HPI: 05/22 10:22 This 57 yrs old Female presents to ER via Ambulatory with complaints of jl9 Abscess.. 10:22 The patient presents with an abscess of the pelvis. Description: The affected area is jl9 approximately 2 cm(s), localized, pointed, raised, swollen. Onset: The symptoms/episode began/occurred 4 day(s) ago. Severity of symptoms: in the emergency department the symptoms a " 6" out of "10". Historical: - Allergies: 10:13 PENICILLINS; ss - PMHx: 10:13 Myocardial infarction; high cholesterol; "pre diabetic"; ss - PSHx: 10:13 cardiac stents x 4; ss - Immunization history:: Client reports receiving the 2nd dose of the Covid vaccine. - Social history:: Smoking status: Patient reports the use of cigarette tobacco products, smokes one pack cigarettes per day. ROS: 10:23 Constitutional: Negative for fever, chills, and weight loss, Eyes: Negative for injury, jl9 pain, redness, and discharge, ENT: Negative for injury, pain, and discharge, Neck: Negative for injury, pain, and swelling, Cardiovascular: Negative for chest pain, palpitations, and edema, Respiratory: Negative for shortness of breath, cough, wheezing, and pleuritic chest pain, Abdomen/GI: Negative for abdominal pain, nausea, vomiting, diarrhea, and constipation, Back: Negative for injury and pain, : Negative for injury, bleeding, discharge, and swelling, MS/Extremity: Negative for injury and deformity. 10:23 Neuro: Negative for headache, weakness, numbness, tingling, and seizure, Psych: Negative for depression, anxiety, suicide ideation, homicidal ideation, and hallucinations, Allergy/Immunology: Negative for hives, rash, and allergies, Endocrine: Negative for neck swelling, polydipsia, polyuria, polyphagia, and marked weight changes, Hematologic/Lymphatic: Negative for swollen nodes, abnormal bleeding, and unusual bruising. 10:23 Skin: Positive for abscess. Exam: 10:24 Constitutional: This is a well developed, well nourished patient who is awake, alert, jl9 and in no acute distress. Head/Face: Normocephalic, atraumatic. Eyes: Pupils equal round and reactive to light, extra-ocular motions intact. Lids and lashes normal. Conjunctiva and sclera are non-icteric and not injected. Cornea within normal limits. Periorbital areas with no swelling, redness, or edema. ENT: Mucous membranes moist. Neck: Trachea midline, no thyromegaly or masses palpated, and no cervical lymphadenopathy. Supple, full range of motion without nuchal rigidity, or vertebral point tenderness. No Meningismus. Chest/axilla: Normal chest wall appearance and motion. Nontender with no deformity. No lesions are appreciated. Cardiovascular: Regular rate and rhythm with a normal S1 and S2. No gallops, murmurs, or rubs. Normal PMI, no JVD. No pulse deficits. Respiratory: Lungs have equal breath sounds bilaterally, clear to auscultation and percussion. No rales, rhonchi or wheezes noted. No increased work of breathing, no retractions or nasal flaring. Abdomen/GI: Soft, non-tender, with normal bowel sounds. No distension or tympany. No guarding or rebound. No evidence of tenderness throughout. Back: No spinal tenderness. No costovertebral tenderness. Full range of motion. 10:24 MS/ Extremity: Pulses equal, no cyanosis. Neurovascular intact. Full, normal range of motion. Neuro: Awake and alert, GCS 15, oriented to person, place, time, and situation. Cranial nerves II-XII grossly intact. Motor strength 5/5 in all extremities. Sensory grossly intact. Cerebellar exam normal. Normal gait. Psych: Awake, alert, with orientation to person, place and time. Behavior, mood, and affect are within normal limits. 10:24 Skin: abscess, that is small, approximately 2 cm(s), of the pelvis, with pointing. Vital Signs: 10:11 BP 155 / 98; Pulse 122; Resp 16; Temp 97.8(TE); Pulse Ox 97% on R/A; Weight 79.38 kg; ss Height 5 ft. 6 in. (167.64 cm); Pain 10/10; 10:11 Body Mass Index 28.25 (79.38 kg, 167.64 cm) ss Procedures: 10:38 I \\T\\ D: Incision and drainage was performed for an abscess of the pelvis Prepped with jl9 Betadine, Anesthetized with 5 ml's 1% Lidocaine w/ Epi. Incised with #11 blade. Drained moderate amount serosanguinous fluid. Loculations removed. Packed with Dressing: sterile 4x4 gauze, the patient tolerated the procedure well. MDM: 10:17 Patient medically screened. jl9 10:24 Data reviewed: vital signs, nurses notes. jl9 10:39 Counseling: I had a detailed discussion with the patient and/or guardian regarding: the jl9 historical points, exam findings, and any diagnostic results supporting the discharge/admit diagnosis, the need for outpatient follow up, to return to the emergency department if symptoms worsen or persist or if there are any questions or concerns that arise at home. Administered Medications: 10:35 Drug: Lidocaine (1 %) 10 ml {Note: administered by NP. Devyn} Volume: 20 ml; Route: ss Infiltration; 10:57 Drug: [place] (HYDROcodone-acetaminophen) (7.5 mg-325 mg) 1 tabs Route: PO; ss 10:57 Follow up: Response: Medication administered at discharge.; RASS: Alert and Calm (0) ss Disposition: 16:20 Co-signature as Attending Physician, Hudson Vásquez MD. rn Disposition Summary: 05/22/22 10:40 Discharge Ordered Location: Home jl9 Condition: Stable jl9 Diagnosis - Cutaneous abscess of groin jl9 Followup: jl9 - With: Private Physician - When: 1 - 2 days - Reason: Recheck today's complaints, Continuance of care, Re-evaluation by your physician Discharge Instructions: - Discharge Summary Sheet jl9 - Skin Abscess, [id number] jl9 - Incision and Drainage, Care After jl9 Forms: - Medication Reconciliation Form jl9 - Thank You Letter jl9 - Antibiotic Education jl9 - Prescription Opioid Use jl9 Prescriptions: - Cephalexin 500 mg Oral Capsule - take 1 capsule by ORAL route every 8 hours for 10 days; 30 capsule; Refills: 0, jl9 Product Selection Permitted Signatures: Hudson Vásquez MD MD rn Smirch, Shelby, RN RN ss Linares, John jl9
[2022-05-22] MEDS ORDERED: HYDROCODONE/APAP 7.5/325 MG TAB ONE (11:02)
[2022-05-22 11:07] VITALS: BP 155/98; TEMP 97.8; O2SAT 97
== END 2022-05-22 10:59 | disposition home or self-care (01) ==
LOC: ER 09:55
PROC: 0H9AXZZ Drainage of Inguinal Skin, External Approach (ICD-10-PCS; principal; 2022-05-22)
DX: L02.214 Cutaneous abscess of groin (principal); I25.2 Old myocardial infarction; Z88.0 Allergy status to penicillin; Z95.5 Presence of coronary angioplasty implant and graft
CPT/HCPCS: 99283

== ENCOUNTER 2022-05-25 07:01 | Day surgery (SDC) | payer OTHER ==
[2022-05-24 10:25] LABS: SARS-CoV-2 Antigen Rapid Res Negative (Negative)
[2022-05-25] MEDS ORDERED: NA CHLORIDE 0.9% 1,000 ML ONE (07:21)
[2022-05-25] MEDS ORDERED: CLINDAMYCIN INJ 600 MG in NA CHLORIDE 0.9% 50 ML IV ONE (08:00)
[2022-05-25] MEDS ORDERED: CLINDAMYCIN 600MG/D5W 600 MG/50 ML BAG IV ONE (08:30)
[2022-05-25] MEDS ORDERED: BUPIVACAINE 0.25% PF 10 ML VIAL ONE (08:41)
[2022-05-25] MEDS ORDERED: FENTANYL CITR 100 MCG/2 ML ONE (08:58)
[2022-05-25] MEDS ORDERED: MIDAZOLAM HCL 2 MG/2 ML INJ ONE (08:58)
[2022-05-25] MEDS ORDERED: propofoL 200 MG/20 ML VIAL IV ONE (08:58)
[2022-05-25] MEDS ORDERED: LIDOCAINE 1% MPF 5 ML VIAL ONE (08:58)
[2022-05-25] MEDS ORDERED: dexAMETHasone 10 MG/ML VIAL ONE (09:29)
[2022-05-25] MEDS ORDERED: SODIUM HYPOCHLORITE 0.25% 473 ML ONE (09:39)
--- NOTE | 2022-05-25 09:40 | P.OP ---
Preoperative diagnosis: Infected Pubic cyst Postoperative diagnosis: Infected Pubic cyst Primary procedure: Wide excision of Infected Pubic cyst Anesthesia: GETA + Local Estimated blood loss: <5cc Specimen: debridement tissue Findings: ~ 2 cm round infected cyst into adipose Complications: None Transferred to: Recovery Room Condition: Good
[2022-05-25] MEDS ORDERED: KETOROLAC 30 MG/ML INJ ONE (09:46)
[2022-05-25] MEDS ORDERED: ONDANSETRON 4 MG/2 ML VIAL ONE (09:46)
[2022-05-25 10:13] VITALS: O2SAT 99
--- NOTE | 2022-05-25 10:26 | OP ---
Date of Procedure: 05/25/2022 Surgeon: Mark Gomez MD, Preoperative Diagnosis: Infected pubic cyst. Postoperative Diagnosis: Infected pubic cyst. Procedure Performed: Wide excision of infected pubic cyst. Anesthesia: General endotracheal plus local with 0.25% Marcaine. Estimated Blood Loss: Less than 5 mL. Specimen: Debridement tissue. Findings: Approximately 2 cm round, infected cyst and adipose tissue. Complications: None. Procedure In Detail: The patient was transferred to recovery room in good condition. Procedure In Detail: After informed consent was obtained, the patient was brought to the operating r oom, prepped and draped in the usual sterile fashion after adequate anesthesia was achieved. An area of the pubic mound/mons pubis was inspected, found to have an open draining wound, which was previou sly incised in the ER. I used a 15 blade down circumferentially around to take off the affected inju red tissue, which had questionable viability. As such, I circumferentially removed all nonviable tis luis with a 15 blade down to subcutaneous tissues. I then dissected circumferentially around the caps ule to remove the entire area, which appeared to be a sebaceous cyst, which had been mostly drained a t this point down to adipose tissue. The entire diameter was approximately 2 cm in size. The area w as copiously irrigated. Hemostasis was achieved with electrocautery. I then proceeded to pack the w ound with half-inch plain packing with Dakin solution and a sterile dressing placed over top. The pa tient tolerated the procedure well without evidence of complication and transferred to PACU in good condition. All counts were correct at the end of the case. IRVING/NAVARRO Voice ID: [id number] Report ID: [id number]
[2022-05-25 11:36] VITALS: BP 102/60; TEMP 96.8
== END 2022-05-25 11:25 | disposition home or self-care (01) ==
LOC: OR 07:01
PROVIDERS: ATTEND Surgery
PROC: 0HB7XZZ Excision of Abdomen Skin, External Approach (ICD-10-PCS; principal; 2022-05-25 08:45)
DX: L02.219 Cutaneous abscess of trunk, unspecified (principal); F17.210 Nicotine dependence, cigarettes, uncomplicated; Z88.0 Allergy status to penicillin; Z20.822 Contact with and (suspected) exposure to COVID-19
CPT/HCPCS: 36415; 82947 ×2; 88304; 87811; 11402; J2704; J2250; J3010; J1100; J7030; J2405